=== PATIENT | female | born 1960 | race Caucasian/White ===

== ENCOUNTER 2016-09-09 06:34 | Day surgery (SDC) | payer BC ==
--- NOTE | 2016-09-08 09:08 | HP ---
History & Physical Update - History History: No Change - Physical Physical: No Change - Assessment Assessment: No Change - Plan Plan: No Change
[2016-09-08 16:04] VITALS: BMI 32.1
[2016-09-09] MEDS ORDERED: LIDOCAINE HCL 1%, 10 MG/ML (20ML VIAL) ONE (07:26)
[2016-09-09] MEDS ORDERED: PROPOFOL 20 ML ONE ×3 (07:39)
[2016-09-09] MEDS ORDERED: ePHEDrine SULFATE 50 MG/1 ML AMPULE ONE (07:39)
[2016-09-09] MEDS ORDERED: SUCCINYLCHOLINE CHLORIDE 200 MG/10 ML VIAL ONE (07:39)
[2016-09-09] MEDS ORDERED: MIDAZOLAM HCL 2 MG/2 ML SINGLE DOSE VIAL ONE ×2 (07:40)
[2016-09-09] MEDS ORDERED: DESFLURANE GAS 240 ML BOTTLE IH ONE (07:46)
[2016-09-09] MEDS ORDERED: DEXAMETHASONE SOD PHOSPHATE 4 MG/1 ML VIAL ONE (07:57)
[2016-09-09] MEDS ORDERED: BUPIVACAINE HCL/PF 0.5% (5MG/ML) 10 ML VIAL ONE (07:57)
[2016-09-09] MEDS ORDERED: LIDOCAINE HCL 1%, 10 MG/ML (20ML VIAL) IJ ONE (08:19)
[2016-09-09] MEDS ORDERED: BUPIVACAINE HCL/PF 0.5% (5MG/ML) 10 ML VIAL IJ ONE (08:48)
[2016-09-09] MEDS ORDERED: DEXAMETHASONE SOD PHOSPHATE 4 MG/1 ML VIAL NR ONE (08:49)
[2016-09-09] MEDS ORDERED: PROMETHAZINE HCL 25 MG/1 ML VIAL IVPUSH PRN (09:04)
[2016-09-09] MEDS ORDERED: oxyCODONE HCL 5 MG TABLET PO PRN (09:04)
[2016-09-09] MEDS ORDERED: ONDANSETRON 4 MG/2 ML VIAL IVPUSH PRN (09:04)
--- NOTE | 2016-09-09 10:01 | OP ---
DATE OF OPERATION: 09/09/2016 PROCEDURE: Arthroplasty, second, right. SURGEON: Wayne Kim DPM PREOPERATIVE DIAGNOSIS: Hammertoe, right foot, second. POSTOPERATIVE DIAGNOSIS: Hammertoe, right foot, second. ANESTHESIA: Local anesthesia with intravenous sedation. DESCRIPTION OF PROCEDURE: Patient was taken to the operating room, placed on the operating room table in a supine position for the administration of local anesthesia which was achieved with infiltration of 6 mL of 1% lidocaine plain injected about the surgical site of the right foot. An ankle pneumatic cuff was then placed on the right side, as well as sufficient padding. Right foot was then prepped and draped in usual sterile manner. The right leg was then elevated for 3 minutes. After which time, tourniquet inflated. The following procedure performed: Attention was directed to the second digit, right foot, where a 3-cm dorsal linear incision was made over the PIP joint. It was carried deep in the same plane using both sharp and blunt dissection. Careful attention paid to cauterize all bleeders as necessary. Attention directed to the long extensor tendon. A transverse tenotomy was performed. Head of the proximal phalanx, 2nd digit, right foot, was excised and removed using a double-action bone cutter. Bone removed in toto. Any denuded bone was rasped smooth. Wound copiously irrigated with amounts of saline solution. Long extensor tendon was then reapproximated using 4-0 Vicryl in a simple interrupted suture technique. Skin and subcutaneous tissue were then reapproximated using 4-0 nylon in a simple interrupted technique, surrounded by horizontal mattress sutures. At this time, site of the right foot was then surgically anesthetized postoperatively using 4 mL of 0.5% Marcaine plain and 1 mL of dexamethasone. Again, these injected into the surgical site of the right foot. Incision site was covered with Betadine-soaked Adaptic, sterile gauze, sterile fluff, and Zi. Tourniquet deflated. Normal noted to perfuse all digits of the right foot. There were no complications. Patient tolerated all aspects of surgery well, left the operating room with vital signs satisfactory, condition of the digits and circulation normal. WAYNE KIM DPM [id number]
[2016-09-09 13:41] VITALS: BP 142/78; PULSE 69; TEMP 97.6
--- NOTE | 2016-09-10 16:30 | PATH ---
Surgical Pathology Report Patient Name: SANJAY DE LA FUENTE [place]. Rec. #: [id number] /Age/Gender: 1960 (Age: 55) / F Account: [id number] Location: [facility] SURGICAL Taken: 09/09/2016 Received: 09/09/2016 Reported: 09/10/2016 Physicians: Wayne Kim DPM Specimen(s) Received HEAD OF PROXIMAL PHALANX 2ND DIGIT RIGHT FOOT Clinical History Hammertoe Final Diagnosis BONE, SECOND TOE RIGHT FOOT, ARTHROPLASTY: BENIGN BONE WITH ATTACHED ARTICULAR CARTILAGE AND SYNOVIUM. Electronically Signed Kee Perez M.D. Gross Description Received in formalin labeled "head of proximal phalanx second toe right foot," is a 1.2 x 0.7 x 0.6 cm scanlon, irregular portion of bone. The specimen is trisected and entirely submitted in one cassette, following decalcification. /09/09/201609/09/2016
== END 2016-09-09 11:30 | disposition home or self-care (01) ==
LOC: JASU-SURG 06:34
PROVIDERS: ATTEND Podiatrist
PROC: 0SRP0JZ Replacement of Right Toe Phalangeal Joint with Synthetic Substitute, Open Approach (ICD-10-PCS; principal; 2016-09-09 08:00)
DX: M20.41 Other hammer toe(s) (acquired), right foot (principal)
CPT/HCPCS: 88305-TC; 94760

== ENCOUNTER 2017-11-29 09:10 | Inpatient (IN) | payer BC ==
--- NOTE | 2017-11-29 09:12 | PDOC ---
History of Present Illness - General Chief Complaint: Respiratory Stated Complaint: COUGH Time Seen by Provider: 11/29/17 09:11 - History of Present Illness Initial Comments: 11/29/17 09:30 The patient is a 57 year old female with a history of HTN, HLD, DM who presents for evaluation of cough and shortness of breath. The patient reports a 1 week history of progressively worsening shortness of breath with an associated non- productive cough. She was evaluated by her primary care provider 4-5 days ago and prescribed antibiotics, however she reports continued symptoms worse with exertion prompting her presentation to the ED for further evaluation. She reports subjective fevers at home, but otherwise denies chest pain, nausea, vomiting, abdominal pain, or changes with urination or bowel movements. The patient does report that she is a daily smoker. Past History - Past Medical History Allergies/Adverse Reactions: Allergies Allergy/AdvReac Type Severity Reaction Status Date / Time benzalkonium chloride Allergy Rash Verified 11/29/17 09:12 nickel Allergy Rash Verified 11/29/17 09:12 Sulfa (Sulfonamide Allergy Rash Verified 11/29/17 09:12 Antibiotics) Home Medications: Ambulatory Orders Levothyroxine [Synthroid -] 112 mcg PO DAILY 08/16/12 Sertraline HCl [Zoloft] 100 mg PO HS 08/16/12 metFORMIN HCL [Glucophage -] 1,000 mg PO HS 08/16/12 Atorvastatin Ca [Lipitor] 10 mg PO HS 09/08/16 Cholecalciferol (Vitamin D3) [Vitamin D3 -] 1,000 unit PO DAILY 09/08/16 Albuterol Sulfate [Proair Hfa] 8.5 gm IH ASDIR 11/29/17 Cefuroxime Axetil [Cefuroxime] 500 mg PO BID 11/29/17 Guaifenesin [Mucinex] 600 mg PO BID 11/29/17 L.acidoph,Paracasei, B.lactis [Probiotic] 1 each PO DAILY 11/29/17 Losartan Potassium 50 mg PO DAILY 11/29/17 Anemia: No Asthma: No Cancer: No Cardiac Disorders: No CVA: No COPD: No CHF: No Dementia: No Diabetes: No (HYPERINSULINEMIA) GI Disorders: Yes (H/O REFLUX) Disorders: No HTN: No Hypercholesterolemia: Yes Liver Disease: No Seizures: No Thyroid Disease: Yes (HYPOTHYROIDISM) - Surgical History Abdominal Surgery: No Appendectomy: No Cardiac Surgery: No Cholecystectomy: No Lung Surgery: No Neurologic Surgery: No Orthopedic Surgery: Yes (CARPAL TUNNEL RELEASE, RIGHT) - Suicide/Smoking/Psychosocial Hx Smoking History: Current every day smoker Have you smoked in the past 12 months: Yes Number of Cigarettes Smoked Daily: 20 'Breaking Loose' booklet given: 09/08/16 Hx Alcohol Use: Yes (SOCIALLY) Drug/Substance Use Hx: No Substance Use Type: Alcohol Hx Substance Use Treatment: No Review of Systems - Review of Systems Comments:: 11/29/17 09:35 Constitutional: Subjective Fevers. No chills, fatigue, malaise HEENT: No Rhinorrhea, nasal congestion, visual changes Cardiovascular: No chest pain, syncope, palpitations, lightheadedness Respiratory: Cough, SOB. No Hemoptysis, Gastrointestinal: No Abdominal pain, Nausea, Vomiting, Constipation, Diarrhea, Melena Genitourinary: No Dysuria, Frequency, Urgency, Hesitancy, Hematuria, Flank pain Musculoskeletal: No Myalgia, arthralgia Skin: No rashes, itching, bruising, pallor Neurologic: No Headache, Dizziness, Numbness, Weakness, or Tingling Psychiatric: No Hallucinations. No SI or HI *Physical Exam - Physical Exam Comments: 11/29/17 09:35 General Appearance: Nourished. No Apparent Distress HEENT: No Pharyngeal Erythema, Tonsillar Exudate, Tonsillar Erythema Neck: No Cervical Lymphadenopathy Respiratory/Chest: Diffuse expiratory and inspiratory wheezing noted on exam. No Crackles, Rales, Rhonchi, Cardiovascular: Regular Rhythm, Regular Rate. No Murmur, Gallops, Rubs Gastrointestinal/Abdominal: Normal Bowel Sounds, Soft. No Guarding, Rebound, Tenderness Musculoskeletal: No CVA Tenderness Extremity: Normal Capillary Refill Integumentary: Normal Color, Dry, Warm Neurologic: Fully Oriented, Alert, Normal Mood/Affect, Normal Response, ED Treatment Course - LABORATORY CBC & Chemistry Diagram: 11/29/17 09:50 11/29/17 09:50 Medical Decision Making - Medical Decision Making 11/29/17 09:36 The patient is a 57 year old female with a history of HTN, HLD who presents for evaluation of cough and shortness of breath. Differential includes but is not limited to: Pneumonia, COPD, ACS, Infectious, Metabolic Derangement. Given the patient's history and physical exam, it is likely the patient's symptoms are related to COPD although she denies a formal diagnosis of COPD. We will obtain a cbc, cmp, troponin, bnp, vbg, ekg, chest plain film to evaluate further. We will treat with duonebs, and prednisone and continue to monitor and reassess while here in the ED. 11/29/17 11:32 CBC, cmp, troponin are unremarkable. Chest plain film demonstrates findings consistent with COPD as read by our radiologist. The patient reports minimal improvement in her symptoms despite medication. Given the patient's clinical appearance, we believe she requires observation admission at this time. We discussed the case with the admitting team who accepted the patient for admission. *DC/Admit/Observation/Transfer Diagnosis at time of Disposition: COPD (chronic obstructive pulmonary disease) Qualifiers: COPD type: unspecified COPD Qualified Code(s): J44.9 - Chronic obstructive pulmonary disease, unspecified - Discharge Dispostion Condition at time of disposition: Stable - Referrals - Patient Instructions - Post Discharge Activity
[2017-11-29] MEDS ORDERED: ALBUTEROL SO4 2.5/IPRATROPIUM 0.5 INH SOL 3 ML VIAL.NEB. NEB ONE ×4 (09:19→10:52)
[2017-11-29] MEDS ORDERED: predniSONE 20 MG TABLET (UD) PO ONE (09:19)
[2017-11-29 09:20] VITALS: BMI 30.7
[2017-11-29] MEDS ORDERED: predniSONE 20 MG TABLET (UD) ONE (09:22)
[2017-11-29 10:01] LABS: BASO % 0.8 % (0-2.0); EOS % 0.1 % (0-4.5); HEMOGLOBIN 13.7 GM/dl (10.7-15.3); MCH 30.1 pg (25.7-33.7); MCHC 33.4 g/dl (32.0-36.0); MEAN CELL VOLUME 90.2 fl (80-96); MEAN PLT VOLUME 8.8 fl (7.5-11.1); MONO % 7.9 % (3.8-10.2); NEUT % 56.2 % (42.8-82.8); PLATELET COUNT 224 K/MM3 (134-434); RBC 4.55 M/mm3 (3.60-5.2); RDW 12.7 % (11.6-15.6); WHITE BLOOD COUNT 8.5 K/mm3 (4.0-10.8)
[2017-11-29 10:21] LABS: ALBUMIN 4.3 g/dl (3.5-5.0); ALK PHOS 69 U/L (32-92); ANION GAP 13 MMOL/L (8-16); BILIRUBIN,TOTAL 0.4 mg/dl (0.2-1.0); BLOOD UREA NITROGEN 13 mg/dl (7-18); CALCIUM 9.2 mg/dl (8.4-10.2); CHLORIDE 101 mmol/L (98-107); CO2 24 mmol/L (22-28); CREATININE 0.6 mg/dl (0.6-1.3); GLUCOSE,RANDOM 101 mg/dl (74-106); POTASSIUM 3.7 mmol/L (3.5-5.1); SGOT/AST 20 U/L (10-42); SGPT/ALT 21 U/L (10-40); SODIUM 138 mmol/L (136-145)
[2017-11-29 10:57] LABS: VENOUS PC02 37.2 mmHg (38-52); VENOUS PH 7.44 (7.32-7.42)
[2017-11-29 10:58] LABS: VENOUS PO2 30.4 mmHg (28-48)
--- NOTE | 2017-11-29 10:58 | PDOC ---
Attending Attestation - Resident Resident Name: Flakito Farrell - ED Attending Attestation I have performed the following: I have examined & evaluated the patient, The case was reviewed & discussed with the resident, I agree w/resident's findings & plan - HPI HPI: 11/29/17 10:57 57 YOF with h/o HTN, HLD, DM2, presenting with 1 week of progressive cough, congestion, SOB at rest and with activity.. no sick contacts. PMD gave albuterol PRN, mucinex and cephalosporin abx, without relief. +smoker daily. compliant with meds. 11/29/17 11:11 - Physicial Exam PE: 11/29/17 11:02 NAD, wMMM, nl conjunctiva, anicteric; neck supple. no JVD. +bilateral wheezing, mild respiratory distress. RRR, abdomen soft nontender. RAO x4, no focal neuro deficits. No peripheral edema. normal color for ethnicity, WWP. - Medical Decision Making 11/29/17 11:10 57 YOF with h/o HTN, HLD, DM2, presenting with 1 week of progressive cough, congestion, SOB at rest and with activity.. no sick contacts. PMD gave albuterol PRN, mucinex and cephalosporin abx, without relief. +smoker daily. compliant with meds. vitals wnl, HR mildly elevated from the respiratory sx and cough. SPO2 normal, RR in 20s with mild respiratory distress responding to bronchodilators. DDx. bronchitis, pleurisy, COPD, pneumonia. ACS, CHF, effusion. dehydration. doubt PE or ACS based on history and presentation. more likely viral bronchitis , as abx not working, and underlying undiagnosed COPD. labs and lytes wnl. VBG normal. no acidosis or alkalosis or CO2 derangements trop and bnp negative, so doubt cardiac etiology. EKG is NSR nonspecific T wave flattening in AVL and III, no ST segment derangements. CXR with hilar adenopathy and COPD changes, no infiltrates given duonebs x3, solumedrol and supportive care. continues to wheeze, slight improvement but still symptomatic. admit observation for supportive care, nebs, respiratory monitoring and workup of COPD as there is suspicion and smoking history but not active treatment or pulm function testing. no fevers here, defer further abx use or therapy. [facility] to [facility] for suspected COPD exac vs acute bronchitis. 11/29/17 11:33
[2017-11-29 11:09] LABS: N-TERMINAL BNP 24.95 pg/ml (5-125)
[2017-11-29] MEDS ORDERED: MAGNESIUM SULF 50% (8.12 MEQ/2 ML-1 GM VIAL) IVPB ONE (11:51)
[2017-11-29] MEDS ORDERED: ZOLPIDEM TARTRATE 5 MG TABLET PO PRN (11:52)
--- NOTE | 2017-11-29 11:54 | HP ---
CHIEF COMPLAINT: cough and shortness of breath PCP: Dr Freire HISTORY OF PRESENT ILLNESS: Patient is a obese 57-year-old female with a past medical history of hypertension, hyperlipidemia, and diabetes. Patient reports with cough shortness of breath for the past week. She was evaluated by her primary care physician Dr. Freire last week and was started on cefepime, albuterol, and mucinex. Patient reports that she is a pack a day smoker for the past 35 years.She reports taking the medications as prescribed and reports worsening of dyspnea upon exertion with non-productive cough. Patient denies any chest pain. 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 [employer] Smoking:pack-a-day smoker for the past 35 years Alcohol:None as per patient Drugs: None as per patient Family History:Father : Pancreatic CVA mother : cOPD Allergies benzalkonium chloride Allergy (Verified 11/29/17 09:12) Rash nickel Allergy (Verified 11/29/17 09:12) Rash Sulfa (Sulfonamide Antibiotics) Allergy (Verified 11/29/17 09:12) Rash HOME MEDICATIONS: Home Medications Medication Instructions Recorded Levothyroxine [Synthroid -] 112 mcg PO DAILY 08/16/12 Sertraline HCl [Zoloft] 100 mg PO HS 08/16/12 metFORMIN HCL [Glucophage -] 1,000 mg PO HS 08/16/12 Atorvastatin Ca [Lipitor] 10 mg PO HS 09/08/16 Cholecalciferol (Vitamin D3) 1,000 unit PO DAILY 09/08/16 [Vitamin D3 -] Albuterol Sulfate [Proair Hfa] 8.5 gm IH ASDIR 11/29/17 Cefuroxime Axetil [Cefuroxime] 500 mg PO BID 11/29/17 Guaifenesin [Mucinex] 600 mg PO BID 11/29/17 L.acidoph,Paracasei, B.lactis 1 each PO DAILY 11/29/17 [Probiotic] Losartan Potassium 50 mg PO DAILY 11/29/17 REVIEW OF SYSTEMS CONSTITUTIONAL: Absent: fever, chills, diaphoresis, generalized weakness, malaise, loss of appetite, weight change HEENT: Absent: rhinorrhea, nasal congestion, throat pain, throat swelling, difficulty swallowing, mouth swelling, ear pain, eye pain, visual changes CARDIOVASCULAR: Absent: chest pain, syncope, palpitations, irregular heart rate, lightheadedness , peripheral edema RESPIRATORY: present: cough, shortness of breath, dyspnea with exertion,wheezing Absent: orthopnea, stridor, hemoptysis GASTROINTESTINAL: Absent: abdominal pain, abdominal distension, nausea, vomiting, diarrhea, constipation, melena, hematochezia GENITOURINARY: Absent: dysuria, frequency, urgency, hesitancy, hematuria, flank pain, genital pain MUSCULOSKELETAL: Absent: myalgia, arthralgia, joint swelling, back pain, neck pain SKIN: Absent: rash, itching, pallor HEMATOLOGIC/IMMUNOLOGIC: Absent: easy bleeding, easy bruising, lymphadenopathy, frequent infections ENDOCRINE: Absent: unexplained weight gain, unexplained weight loss, heat intolerance, cold intolerance NEUROLOGIC: Absent: headache, focal weakness or paresthesias, dizziness, unsteady gait, seizure, mental status changes, bladder or bowel incontinence PSYCHIATRIC: Absent: anxiety, depression, suicidal or homicidal ideation, hallucinations. PHYSICAL EXAMINATION Vital Signs - 24 hr 11/29/17 09:10 Temperature 99 F Pulse Rate 99 H Respiratory 22 Rate Blood Pressure 146/89 O2 Sat by Pulse 97 Oximetry (%) GENERAL: Awake, alert, and fully oriented, in no acute distress. HEAD: Normal with no signs of trauma. EYES: Pupils equal, round and reactive to light, extraocular movements intact, sclera anicteric, conjunctiva clear. No lid lag. EARS, NOSE, THROAT: Ears normal, nares patent, oropharynx clear without exudates. Moist mucous membranes. NECK: Normal range of motion, supple without lymphadenopathy, JVD, or masses. LUNGS: Breath sounds equal, Course rhonchi bilaterally to apex moderately diminished, bilateral lower lobe inspiratory wheeze. RR 24, no crackles. No accessory muscle use. HEART: Regular rate and rhythm, normal S1 and S2 without murmur, rub or gallop. ABDOMEN: Soft, nontender, not distended, normoactive bowel sounds, no guarding, no rebound, no masses. No hepatomegaly or splenomegaly. MUSCULOSKELETAL: Normal range of motion at all joints. No bony deformities or tenderness. No CVA tenderness. UPPER EXTREMITIES: 2+ pulses, warm, well-perfused. No cyanosis. No clubbing. No peripheral edema. LOWER EXTREMITIES: 2+ pulses, warm, well-perfused. No calf tenderness. No peripheral edema. NEUROLOGICAL: Cranial nerves II-XII intact. Normal speech. Normal gait. PSYCHIATRIC: Cooperative. Good eye contact. Appropriate mood and affect. SKIN: Warm, dry, normal turgor, no rashes or lesions noted, normal capillary refill. Laboratory Results - last 24 hr 11/29/17 11/29/17 11/29/17 09:50 09:50 09:50 WBC 8.5 RBC 4.55 Hgb 13.7 Hct 41.0 MCV 90.2 MCH 30.1 MCHC 33.4 RDW 12.7 Plt Count 224 MPV 8.8 Absolute Neuts (auto) 4.7 Neutrophils % 56.2 Lymphocytes % 35.0 Monocytes % 7.9 Eosinophils % 0.1 Basophils % 0.8 VBG pH 7.44 H POC VBG pCO2 37.2 L POC VBG pO2 30.4 Mixed VBG HCO3 24.9 Sodium 138 Potassium 3.7 Chloride 101 Carbon Dioxide 24 Anion Gap 13 BUN 13 Creatinine 0.6 Creat Clearance w eGFR > 60 Random Glucose 101 Calcium 9.2 Total Bilirubin 0.4 AST 20 ALT 21 Alkaline Phosphatase 69 Troponin I B-Natriuretic Peptide 24.95 Total Protein Albumin 4.3 11/29/17 09:50 WBC RBC Hgb Hct MCV MCH MCHC RDW Plt Count MPV Absolute Neuts (auto) Neutrophils % Lymphocytes % Monocytes % Eosinophils % Basophils % VBG pH POC VBG pCO2 POC VBG pO2 Mixed VBG HCO3 Sodium Potassium Chloride Carbon Dioxide Anion Gap BUN Creatinine Creat Clearance w eGFR Random Glucose Calcium Total Bilirubin AST ALT Alkaline Phosphatase Troponin I < 0.03 B-Natriuretic Peptide Total Protein Albumin ASSESSMENT/PLAN: 1)Pulmonary copd exacerbation - ct of chest reviewed, prednisone given in ED, will start solumedrol 40mg q6h with taper as appropriate - start standing duonebs, zithromax and symbicort - incentive spirometer and peak flow - smoking cessation discussed with patient at length, will start nicoderm patch - appreciate pulmonology input 2) cardiovascular hypertension - Continue losartan blood pressure:Repeat blood pressure every 4 hours 3) Endo Hypothyroidism - Continue levothyroxine, TSH in a.m. DM - continue metformin f/e/n - low sodium diet - replete electrolytes prn ppx - oob - pepcid - lovenox dispo:pt requires inpatient admission Visit type - Emergency Visit Emergency Visit: Yes ED Registration Date: 11/29/17 Care time: The patient presented to the Emergency Department on the above date and was hospitalized for further evaluation of their emergent condition. - New Patient This patient is new to me today: Yes Date on this admission: 11/29/17 - Critical Care Critical Care patient: No Hospitalist Screening - Colonoscopy Questionnaire Colonoscopy Questionnaire: Colonoscopy Questionnaire - Patient: 50 - 75 years old and never had a screening colonoscopy: No History of colon or rectal polyps, or CA: No History of IBD, Crohn's disease or UC: No History of abdominal radiation therapy as a child: No - Relative: 1 with colon or rectal CA, or polyps at age 60 or younger: No Colon or rectal CA diagnosed at age 45 or younger: No Multiple relatives with colon or rectal CA: No - Outcome: Screening Result: Negative Screen
[2017-11-29] MEDS ORDERED: MAGNESIUM 1GM/D5W - 1 GM/100 ML IVPB IVPB ONE (11:56)
[2017-11-29] MEDS ORDERED: methylPREDNISolone NA SUCC 40 MG/1 ML VIAL ONE (11:59)
[2017-11-29] MEDS: methylPREDNISolone NA SUCC 40 MG/1 ML VIAL IVPUSH SCH ×3 (12:00→22:17)
[2017-11-29] MEDS ORDERED: NICOTINE 14 MG/24 HOURS TOPICAL PATCH TD SCH ×3 (12:00→17:30)
[2017-11-29] MEDS ORDERED: ALBUTEROL SO4 0.083% IH SOL 2.5 MG/3 ML VIAL.NEB. NEB PRN (12:27)
[2017-11-29] MEDS ORDERED: guaiFENesin/CODEINE 10 ML UNIT-DOSE CUPS PO PRN (12:42)
[2017-11-29] MEDS ORDERED: AZITHROMYCIN IVPB 250 ML IVPB ONE (13:12)
[2017-11-29] MEDS ORDERED: AZITHROMYCIN 500 MG VIAL IVPB ONE (13:49)
--- NOTE | 2017-11-29 16:06 | CON.PULM ---
Consult Consult Specialty:: PULMONARY Referred by:: REJI Reason for Consultation:: SOB - History of Present Illness Chief Complaint: SOB/COUGH/CHEST CONGESTION History of Present Illness: The patient is a 57 year old female with a history of HTN, HLD, DM who presents for evaluation of cough and shortness of breath. The patient reports a 1 week history of progressively worsening shortness of breath with an associated non- productive cough. She was evaluated by her primary care provider 4-5 days ago and prescribed antibiotics, however she reports continued symptoms worse with exertion prompting her presentation to the ED for further evaluation. She reports subjective fevers at home, but otherwise denies chest pain, nausea, vomiting, abdominal pain, or changes with urination or bowel movements. The patient does report that she is a daily smoker. 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 No: O2 Dependent, Pneumonia Gastrointestinal: No: Ascites Hepatobiliary: No: Cirrhosis Renal/: No: Renal Failure Reproductive: Yes: Postmenopausal ...LMP: 07/09/11 ...: No Heme/Onc: No: Anemia - Alcohol/Substance Use Hx Alcohol Use: Yes (SOCIALLY) - Smoking History Smoking history: Current every day smoker Have you smoked in the past 12 months: Yes Aproximately how many cigarettes per day: 24 - Social History Usual Living Arrangement: Alone ADL: Independent Place of : [facility] History of Recent Travel: No Home Medications - Allergies Allergies/Adverse Reactions: Allergies Allergy/AdvReac Type Severity Reaction Status Date / Time benzalkonium chloride Allergy Rash Verified 11/29/17 09:12 nickel Allergy Rash Verified 11/29/17 09:12 Sulfa (Sulfonamide Allergy Rash Verified 11/29/17 09:12 Antibiotics) - Home Medications Home Medications: Ambulatory Orders Levothyroxine [Synthroid -] 112 mcg PO DAILY 08/16/12 Sertraline HCl [Zoloft] 100 mg PO HS 08/16/12 metFORMIN HCL [Glucophage -] 1,000 mg PO HS 08/16/12 Atorvastatin Ca [Lipitor] 10 mg PO HS 09/08/16 Cholecalciferol (Vitamin D3) [Vitamin D3 -] 1,000 unit PO DAILY 09/08/16 Albuterol Sulfate [Proair Hfa] 8.5 gm IH ASDIR 11/29/17 Cefuroxime Axetil [Cefuroxime] 500 mg PO BID 11/29/17 Guaifenesin [Mucinex] 600 mg PO BID 11/29/17 L.acidoph,Paracasei, B.lactis [Probiotic] 1 each PO DAILY 11/29/17 Losartan Potassium 50 mg PO DAILY 11/29/17 Family Disease History - Family Disease History Family History: Unremarkable Review of Systems - Review of Systems Neck: reports: No Symptoms Cardiovascular: denies: Chest Pain Respiratory: reports: Cough, Exercise Intolerance, SOB on Exertion, Wheezing. denies: Hemoptysis Gastrointestinal: reports: No Symptoms Genitourinary: reports: No Symptoms Breasts: reports: No Symptoms Reported Musculoskeletal: reports: No Symptoms Physical Exam Vital Sings: Vital Signs Temperature 99.5 F 11/29/17 14:12 Pulse Rate 91 H 11/29/17 14:12 Respiratory Rate 20 11/29/17 14:12 Blood Pressure 168/66 11/29/17 14:12 O2 Sat by Pulse Oximetry (%) 94 L 11/29/17 14:12 Constitutional: Yes: Anxious Eyes: Yes: EOM Intact HENT: Yes: Normocephalic Neck: Yes: Trachea Midline Cardiovascular: Yes: Regular Rate and Rhythm, S1, S2 Respiratory: Yes: Diminished, Rhonchi, Wheezes Gastrointestinal: Yes: Normal Bowel Sounds Extremities: Yes: WNL Edema: No Neurological: Yes: Alert Psychiatric: Yes: Oriented Labs: CBC, BMP 11/29/17 09:50 11/29/17 09:50 REST REVIEWED Imaging - Results Chest X-ray: Report Reviewed, Image Reviewed Cat Scan: Report Reviewed, Image Reviewed Problem List - Problems (1) Asthmatic bronchitis Code(s): J45.909 - UNSPECIFIED ASTHMA, UNCOMPLICATED (2) COPD (chronic obstructive pulmonary disease) Code(s): J44.9 - CHRONIC OBSTRUCTIVE PULMONARY DISEASE, UNSPECIFIED Qualifiers: COPD type: unspecified COPD Qualified Code(s): J44.9 - Chronic obstructive pulmonary disease, unspecified (3) Nicotine dependence Code(s): F17.200 - NICOTINE DEPENDENCE, UNSPECIFIED, UNCOMPLICATED (4) Anxiety and depression Code(s): F41.9 - ANXIETY DISORDER, UNSPECIFIED; F32.9 - MAJOR DEPRESSIVE DISORDER, SINGLE EPISODE, UNSPECIFIED Assessment/Plan ACUTE EXACERBATION COPD IN ACTIVE SMOKER WITH BRONCHITIS FAILED OUTPATIENT THERAPY O2/BRONCHODILATORS/STEROIDS/ANTIBIOTICS WILL NEED OUTPATIENT PFT'F/SMOKING CESSATION Karla SEQUEIRA MD
[2017-11-29] MEDS: ALBUTEROL SO4 2.5/IPRATROPIUM 0.5 INH SOL 3 ML VIAL.NEB. NEB SCH ×2 (16:17→20:21)
[2017-11-29] MEDS ORDERED: ACETAMINOPHEN 325 MG TABLET (FP) PO ONE (20:26)
[2017-11-29] MEDS: SERTRALINE HCL 50 MG TABLET (FP) PO SCH (21:11)
[2017-11-29] MEDS: guaiFENesin 600 MG TABLET.ER (FP) PO SCH (21:11)
[2017-11-29] MEDS: FAMOTIDINE 20 MG TABLET PO SCH (21:11)
[2017-11-29] MEDS: metFORMIN HCL 500 MG TABLET (FP) PO SCH (21:11)
[2017-11-29] MEDS: ATORVASTATIN CA 10 MG TABLET (FP) PO SCH (21:11)
[2017-11-30] MEDS: methylPREDNISolone NA SUCC 40 MG/1 ML VIAL IVPUSH SCH ×4 (03:00→20:43)
[2017-11-30] MEDS: LEVOTHYROXINE NA 112 MCG TABLET (FP) PO SCH (06:07)
[2017-11-30 08:29] LABS: BASO % 0.3 % (0-2.0); HEMATOCRIT 42.2 % (32.4-45.2); MCH 30.2 pg (25.7-33.7); MCHC 33.2 g/dl (32.0-36.0); MEAN CELL VOLUME 90.8 fl (80-96); MEAN PLT VOLUME 9.1 fl (7.5-11.1); MONO % 3.2 % (3.8-10.2); NEUT % 85.5 % (42.8-82.8); PLATELET COUNT 250 K/MM3 (134-434); RBC 4.65 M/mm3 (3.60-5.2); RDW 12.6 % (11.6-15.6); WHITE BLOOD COUNT 12.9 K/mm3 (4.0-10.8)
[2017-11-30 08:53] LABS: ALBUMIN 4.3 g/dl (3.5-5.0); ALK PHOS 74 U/L (32-92); ANION GAP 13 MMOL/L (8-16); BILIRUBIN,TOTAL 0.2 mg/dl (0.2-1.0); BLOOD UREA NITROGEN 12 mg/dl (7-18); CALCIUM 9.3 mg/dl (8.4-10.2); CHLORIDE 102 mmol/L (98-107); CO2 22 mmol/L (22-28); CREATININE 0.6 mg/dl (0.6-1.3); GLUCOSE,RANDOM 115 mg/dl (74-106); POTASSIUM 4.3 mmol/L (3.5-5.1); SGOT/AST 20 U/L (10-42); SGPT/ALT 20 U/L (10-40); SODIUM 137 mmol/L (136-145); TOT PROT 7.3 g/dl (6.4-8.3)
--- NOTE | 2017-11-30 09:08 | PN ---
Physical Exam: SUBJECTIVE: Patient seen and examined, reports Feeling less dyspneic does report ongoing cough OBJECTIVE:Patient is a obese 57-year-old female with a past medical history of hypertension, hyperlipidemia, and diabetes, patient was admitted from the emergency department for copd exacerbation . Vital Signs Period Temp Pulse Resp BP Sys/Mckee Pulse Ox Last 24 Hr 97.8 F-99.5 F 66-99 16-22 109-168/61-89 94-98 GENERAL: The patient is awake, alert, and fully oriented, in no acute distress. HEAD: Normal with no signs of trauma. EYES: PERRL, extraocular movements intact, sclera anicteric, conjunctiva clear. No ptosis. ENT: Ears normal, nares patent, oropharynx clear without exudates, moist mucous membranes. NECK: Trachea midline, full range of motion, supple. LUNGS: Breath sounds equal, course rhonchi to apexes, wheezing to billateral bases, no crackles, no accessory muscle use. HEART: Regular rate and rhythm, S1, S2 without murmur, rub or gallop. ABDOMEN: Soft, nontender, nondistended, normoactive bowel sounds, no guarding, no rebound, no hepatosplenomegaly, no masses. EXTREMITIES: 2+ pulses, warm, well-perfused, no edema. NEUROLOGICAL: Cranial nerves II through XII grossly intact. Normal speech, gait not observed. PSYCH: Normal mood, normal affect. SKIN: Warm, dry, normal turgor, no rashes or lesions noted Laboratory Results - last 24 hr 11/29/17 11/29/17 11/29/17 09:50 09:50 09:50 WBC 8.5 RBC 4.55 Hgb 13.7 Hct 41.0 MCV 90.2 MCH 30.1 MCHC 33.4 RDW 12.7 Plt Count 224 MPV 8.8 Absolute Neuts (auto) 4.7 Neutrophils % 56.2 Lymphocytes % 35.0 Monocytes % 7.9 Eosinophils % 0.1 Basophils % 0.8 VBG pH 7.44 H POC VBG pCO2 37.2 L POC VBG pO2 30.4 Mixed VBG HCO3 24.9 Sodium 138 Potassium 3.7 Chloride 101 Carbon Dioxide 24 Anion Gap 13 BUN 13 Creatinine 0.6 Creat Clearance w eGFR > 60 Random Glucose 101 Calcium 9.2 Total Bilirubin 0.4 AST 20 ALT 21 Alkaline Phosphatase 69 Troponin I B-Natriuretic Peptide 24.95 Total Protein Albumin 4.3 11/29/17 11/30/17 11/30/17 09:50 07:30 07:30 WBC 12.9 H RBC 4.65 Hgb 14.0 Hct 42.2 MCV 90.8 MCH 30.2 MCHC 33.2 RDW 12.6 Plt Count 250 MPV 9.1 Absolute Neuts (auto) 11.1 Neutrophils % 85.5 H Lymphocytes % 11.0 Monocytes % 3.2 L Eosinophils % 0.0 Basophils % 0.3 VBG pH POC VBG pCO2 POC VBG pO2 Mixed VBG HCO3 Sodium 137 Potassium 4.3 Chloride 102 Carbon Dioxide 22 Anion Gap 13 BUN 12 Creatinine 0.6 Creat Clearance w eGFR > 60 Random Glucose 115 H Calcium 9.3 Total Bilirubin 0.2 AST 20 ALT 20 Alkaline Phosphatase 74 Troponin I < 0.03 B-Natriuretic Peptide Total Protein 7.3 Albumin 4.3 Active Medications Generic Name Dose Route Start Last Admin Trade Name Freq PRN Reason Stop Dose Admin Albuterol Sulfate 1 amp 11/29/17 12:27 Ventolin 0.083% Nebulizer Soln - NEB Q4H PRN SHORT OF BREATH/WHEEZING Albuterol/Ipratropium 1 amp 11/29/17 16:00 11/29/17 20:21 Duoneb - NEB 1 amp RQID KESHAWN Administration Atorvastatin Calcium 10 mg 11/29/17 22:00 11/29/17 21:11 Lipitor - PO 10 mg HS KESHAWN Administration Cholecalciferol 1,000 unit 11/30/17 10:00 Vitamin D3 - PO DAILY KESHAWN Enoxaparin Sodium 40 mg 11/30/17 10:00 Lovenox - SQ DAILY KESHAWN Famotidine 20 mg 11/29/17 22:00 11/29/17 21:11 Pepcid - PO 20 mg BID KESHAWN Administration Guaifenesin 600 mg 11/29/17 22:00 11/29/17 21:11 Mucinex - PO 600 mg BID KESHAWN Administration Guaifenesin/Codeine Phosphate 10 ml 11/29/17 12:42 Robitussin Ac - PO Q8H PRN COUGH Azithromycin 250 mg/ Dextrose 250 mls @ 250 mls/hr 11/30/17 10:00 IVPB DAILY KESHAWN Lactobacillus Acidophilus 1 tab 11/30/17 10:00 Bacid - PO DAILY KESHAWN Levothyroxine Sodium 112 mcg 11/30/17 07:00 11/30/17 06:07 Synthroid - PO 112 mcg DAILY@0700 KESHAWN Administration Losartan Potassium 50 mg 11/30/17 10:00 Cozaar - PO DAILY KESHAWN Metformin HCl 1,000 mg 11/29/17 22:00 11/29/17 21:11 Glucophage - PO 1,000 mg HS KESHAWN Administration Methylprednisolone Sodium Succinate 40 mg 11/29/17 12:00 11/30/17 03:00 Solu-Medrol - IVPUSH 40 mg Q6H-IV KESHAWN Administration Nicotine 21 mg 11/29/17 17:30 Nicoderm Patch - TD DAILY KESHAWN Sertraline HCl 100 mg 11/29/17 22:00 11/29/17 21:11 Zoloft - PO 100 mg HS KESHAWN Administration Zolpidem Tartrate 5 mg 11/29/17 11:52 Ambien - PO HS PRN INSOMNIA IMAGING CT of chest: mild copd ASSESSMENT/PLAN: 1)Pulmonary copd exacerbation - continue solumedrol 40mg q6h with taper as appropriate - continue duonebs prn, zithromax, symbicort, and spiriva - smoking cessation discussed with patient at length, continue nicoderm patch - pulmonary consulted and followed 2) cardiovascular hypertension - Continue losartan blood pressure:Repeat blood pressure every 4 hours 3) Endo Hypothyroidism - Continue levothyroxine, TSH pending DM - continue metformin f/e/n - low sodium diet - replete electrolytes prn ppx - oob - pepcid - lovenox dispo:pt requires inpatient admission Visit type - Emergency Visit Emergency Visit: Yes ED Registration Date: 11/30/17 Care time: The patient presented to the Emergency Department on the above date and was hospitalized for further evaluation of their emergent condition. - New Patient This patient is new to me today: No - Critical Care Critical Care patient: No - Discharge Referral Referred to [facility] Med [facility].C[facility] No
[2017-11-30] MEDS: LACTOBACILLUS ACIDOPHILUS 1 TABLET PO SCH (09:31)
[2017-11-30] MEDS: ALBUTEROL SO4 2.5/IPRATROPIUM 0.5 INH SOL 3 ML VIAL.NEB. NEB SCH (09:31)
[2017-11-30] MEDS: NICOTINE 21 MG/24 HOURS TOPICAL PATCH TD SCH (09:32)
[2017-11-30] MEDS: CHOLECALCIFEROL (VITAMIN D3) 1,000 UNIT TABLET (FP) PO SCH (09:32)
[2017-11-30] MEDS: LOSARTAN POTASSIUM 50 MG TABLET (FP) PO SCH (09:33)
[2017-11-30] MEDS: AZITHROMYCIN IVPB 250 MG in DEXTROSE 5%-WATER - 250 ML IVPB SCH (09:33)
[2017-11-30] MEDS: guaiFENesin 600 MG TABLET.ER (FP) PO SCH ×2 (09:33→21:02)
[2017-11-30] MEDS: FAMOTIDINE 20 MG TABLET PO SCH ×2 (09:33→21:03)
[2017-11-30] MEDS: ENOXAPARIN NA (PORCINE) 40 MG/0.4 ML DISP.SYRIN SQ SCH (09:35)
--- NOTE | 2017-11-30 09:55 | PN ---
Progress Note, Physician History of Present Illness: PULMONARY FEELING BETTER,LESS CONGESTED,LESS DYSPNEIC,+ COUGH - Current Medication List Current Medications: Active Medications Albuterol Sulfate (Ventolin 0.083% Nebulizer Soln -) 1 amp NEB Q4H PRN PRN Reason: SHORT OF BREATH/WHEEZING Albuterol/Ipratropium (Duoneb -) 1 amp NEB RQID [facility] Last Admin: 11/30/17 09:31 Dose: 1 amp Atorvastatin Calcium (Lipitor -) 10 mg PO HS [facility] Last Admin: 11/29/17 21:11 Dose: 10 mg Cholecalciferol (Vitamin D3 -) 1,000 unit PO DAILY [facility] Last Admin: 11/30/17 09:32 Dose: 1,000 unit Enoxaparin Sodium (Lovenox -) 40 mg SQ DAILY [facility] Last Admin: 11/30/17 09:35 Dose: Not Given Famotidine (Pepcid -) 20 mg PO BID [facility] Last Admin: 11/30/17 09:33 Dose: 20 mg Guaifenesin (Mucinex -) 600 mg PO BID [facility] Last Admin: 11/30/17 09:33 Dose: 600 mg Guaifenesin/Codeine Phosphate (Robitussin Ac -) 10 ml PO Q8H PRN PRN Reason: COUGH Azithromycin 250 mg/ Dextrose 250 mls @ 250 mls/hr IVPB DAILY [facility] Last Admin: 11/30/17 09:33 Dose: 250 mls/hr Lactobacillus Acidophilus (Bacid -) 1 tab PO DAILY [facility] Last Admin: 11/30/17 09:31 Dose: 1 tab Levothyroxine Sodium (Synthroid -) 112 mcg PO DAILY@0700 [facility] Last Admin: 11/30/17 06:07 Dose: 112 mcg Losartan Potassium (Cozaar -) 50 mg PO DAILY [facility] Last Admin: 11/30/17 09:33 Dose: 50 mg Metformin HCl (Glucophage -) 1,000 mg PO HS [facility] Last Admin: 11/29/17 21:11 Dose: 1,000 mg Methylprednisolone Sodium Succinate (Solu-Medrol -) 40 mg IVPUSH Q6H-IV [facility] Last Admin: 11/30/17 09:35 Dose: 40 mg Nicotine (Nicoderm Patch -) 21 mg TD DAILY [facility] Last Admin: 11/30/17 09:32 Dose: 21 mg Sertraline HCl (Zoloft -) 100 mg PO HS [facility] Last Admin: 11/29/17 21:11 Dose: 100 mg Zolpidem Tartrate (Ambien -) 5 mg PO HS PRN PRN Reason: INSOMNIA - Objective Vital Signs: Vital Signs Temperature 98.3 F 11/30/17 09:23 Pulse Rate 84 11/30/17 09:23 Respiratory Rate 18 11/30/17 09:23 Blood Pressure 141/68 11/30/17 09:23 O2 Sat by Pulse Oximetry (%) 96 11/30/17 06:32 Constitutional: Yes: Well Nourished, Calm Eyes: Yes: WNL HENT: Yes: WNL Neck: Yes: WNL Cardiovascular: Yes: Regular Rate and Rhythm, S1, S2 Respiratory: Yes: Rhonchi (SACTTERED KAI RHONCHI) Gastrointestinal: Yes: Normal Bowel Sounds, Soft Extremities: Yes: WNL Edema: No Labs: CBC, BMP 11/30/17 07:30 11/30/17 07:30 Assessment/Plan Problem List - Problems (1) Asthmatic bronchitis Code(s): J45.909 - UNSPECIFIED ASTHMA, UNCOMPLICATED (2) COPD (chronic obstructive pulmonary disease) Code(s): J44.9 - CHRONIC OBSTRUCTIVE PULMONARY DISEASE, UNSPECIFIED Qualifiers: COPD type: unspecified COPD Qualified Code(s): J44.9 - Chronic obstructive pulmonary disease, unspecified (3) Nicotine dependence Code(s): F17.200 - NICOTINE DEPENDENCE, UNSPECIFIED, UNCOMPLICATED (4) Anxiety and depression Code(s): F41.9 - ANXIETY DISORDER, UNSPECIFIED; F32.9 - MAJOR DEPRESSIVE DISORDER, SINGLE EPISODE, UNSPECIFIED Assessment/Plan ACUTE EXACERBATION COPD ACTIVE SMOKER O2 INHALED BRONCHODILATORS STEROIDS SAME DOSE ANTIBIOTICS OUTPATIENT PFT'S SMOKING CESSATION YEARLY LOW DOSE CHEST CT FOR LUNG CANCER SCREENING DR LE
[2017-11-30] MEDS: BUDESONIDE/FORMETEROL FUMARATE 160/4.5 mcg INHALER IH SCH ×2 (10:32→21:03)
[2017-11-30] MEDS: TIOTROPIUM BROMIDE 2.5 MCG (SPIRIVA) RESPIMAT INHALER IH SCH (10:33)
--- NOTE | 2017-11-30 16:44 | EKG ---
Test Reason : Blood Pressure : / mmHG Vent. Rate : 077 BPM Atrial Rate : 077 BPM P-R Int : 192 ms QRS Dur : 076 ms QT Int : 394 ms P-R-T Axes : 026 067 053 degrees QTc Int : 445 ms NORMAL SINUS RHYTHM NORMAL ECG WHEN COMPARED WITH ECG OF 28-APR-2000 10:38, NO SIGNIFICANT CHANGE WAS FOUND Confirmed by Devyn Horta ([id number]) on 11/30/2017 4:44:21 PM Referred By: OKSANA CORMIER Confirmed By:Devyn Horta
[2017-11-30] MEDS: metFORMIN HCL 500 MG TABLET (FP) PO SCH (21:02)
[2017-11-30] MEDS: SERTRALINE HCL 50 MG TABLET (FP) PO SCH (21:03)
[2017-11-30] MEDS: ATORVASTATIN CA 10 MG TABLET (FP) PO SCH (21:03)
[2017-12-01] MEDS: methylPREDNISolone NA SUCC 40 MG/1 ML VIAL IVPUSH SCH ×4 (03:08→21:10)
[2017-12-01] MEDS: LEVOTHYROXINE NA 112 MCG TABLET (FP) PO SCH (06:06)
[2017-12-01] MEDS: LACTOBACILLUS ACIDOPHILUS 1 TABLET PO SCH (10:27)
[2017-12-01] MEDS: NICOTINE 21 MG/24 HOURS TOPICAL PATCH TD SCH (10:28)
[2017-12-01] MEDS: guaiFENesin 600 MG TABLET.ER (FP) PO SCH ×2 (10:29→21:09)
[2017-12-01] MEDS ORDERED: ALBUTEROL SO4 0.083% IH SOL 2.5 MG/3 ML VIAL.NEB. NEB ONE (10:30)
[2017-12-01] MEDS: BUDESONIDE/FORMETEROL FUMARATE 160/4.5 mcg INHALER IH SCH ×2 (10:30→21:10)
[2017-12-01] MEDS: TIOTROPIUM BROMIDE 2.5 MCG (SPIRIVA) RESPIMAT INHALER IH SCH (10:30)
[2017-12-01] MEDS: LOSARTAN POTASSIUM 50 MG TABLET (FP) PO SCH (10:30)
[2017-12-01] MEDS: CHOLECALCIFEROL (VITAMIN D3) 1,000 UNIT TABLET (FP) PO SCH (10:30)
[2017-12-01] MEDS: AZITHROMYCIN IVPB 250 MG in DEXTROSE 5%-WATER - 250 ML IVPB SCH (10:30)
[2017-12-01] MEDS: FAMOTIDINE 20 MG TABLET PO SCH ×2 (10:31→21:10)
[2017-12-01] MEDS: ENOXAPARIN NA (PORCINE) 40 MG/0.4 ML DISP.SYRIN SQ SCH (10:32)
--- NOTE | 2017-12-01 14:07 | PN ---
Physical Exam: SUBJECTIVE: Patient seen and examined, patient reports cough and shortness of breath Has improved. Reports less dyspnea on exertion OBJECTIVE: Patient is an obese 57-year-old female with a past medical history of hypertension, hyperlipidemia, and diabetes, patient was admitted from the emergency department for copd exacerbation Vital Signs Period Temp Pulse Resp BP Sys/Mckee Pulse Ox Last 24 Hr 97.8 F-98.2 F 57-75 17-20 111-122/58-65 95-100 GENERAL: The patient is awake, alert, and fully oriented, in no acute distress. HEAD: Normal with no signs of trauma. EYES: PERRL, extraocular movements intact, sclera anicteric, conjunctiva clear. No ptosis. ENT: Ears normal, nares patent, oropharynx clear without exudates, moist mucous membranes. NECK: Trachea midline, full range of motion, supple. LUNGS: Breath sounds equal, course rhonchi to apexes, diminished to bases, no crackles, no accessory muscle use. HEART: Regular rate and rhythm, S1, S2 without murmur, rub or gallop. ABDOMEN: Soft, nontender, nondistended, normoactive bowel sounds, no guarding, no rebound, no hepatosplenomegaly, no masses. EXTREMITIES: 2+ pulses, warm, well-perfused, no edema. NEUROLOGICAL: Cranial nerves II through XII grossly intact. Normal speech, gait not observed. PSYCH: Normal mood, normal affect. SKIN: Warm, dry, normal turgor, no rashes or lesions noted Laboratory Results - last 24 hr 11/30/17 07:30 TSH 0.45 Active Medications Generic Name Dose Route Start Last Admin Trade Name Freq PRN Reason Stop Dose Admin Albuterol Sulfate 1 amp 11/29/17 12:27 Ventolin 0.083% Nebulizer Soln - NEB Q4H PRN SHORT OF BREATH/WHEEZING Atorvastatin Calcium 10 mg 11/29/17 22:00 11/30/17 21:03 Lipitor - PO 10 mg HS KESHAWN Administration Budesonide/Formoterol Fumarate 2 puff 11/30/17 10:30 12/01/17 10:30 Symbicort 160/4.5mcg - IH 2 puff BID KESHAWN Administration Cholecalciferol 1,000 unit 11/30/17 10:00 12/01/17 10:30 Vitamin D3 - PO 1,000 unit DAILY KESHAWN Administration Enoxaparin Sodium 40 mg 11/30/17 10:00 12/01/17 10:32 Lovenox - SQ 40 mg DAILY KESHAWN Administration Famotidine 20 mg 11/29/17 22:00 12/01/17 10:31 Pepcid - PO 20 mg BID KESHAWN Administration Guaifenesin 600 mg 11/29/17 22:00 12/01/17 10:29 Mucinex - PO 600 mg BID KESHAWN Administration Guaifenesin/Codeine Phosphate 10 ml 11/29/17 12:42 Robitussin Ac - PO Q8H PRN COUGH Azithromycin 250 mg/ Dextrose 250 mls @ 250 mls/hr 11/30/17 10:00 12/01/17 10 :30 IVPB 250 mls/hr DAILY KESHAWN Administration Lactobacillus Acidophilus 1 tab 11/30/17 10:00 12/01/17 10:27 Bacid - PO 1 tab DAILY KESHAWN Administration Levothyroxine Sodium 112 mcg 11/30/17 07:00 12/01/17 06:06 Synthroid - PO 112 mcg DAILY@0700 KESHAWN Administration Losartan Potassium 50 mg 11/30/17 10:00 12/01/17 10:30 Cozaar - PO 50 mg DAILY KESHAWN Administration Metformin HCl 1,000 mg 11/29/17 22:00 11/30/17 21:02 Glucophage - PO 1,000 mg HS KESHAWN Administration Methylprednisolone Sodium Succinate 40 mg 11/29/17 12:00 12/01/17 10:27 Solu-Medrol - IVPUSH 40 mg Q6H-IV KESHAWN Administration Nicotine 21 mg 11/29/17 17:30 12/01/17 10:28 Nicoderm Patch - TD 21 mg DAILY KESHAWN Administration Sertraline HCl 100 mg 11/29/17 22:00 11/30/17 21:03 Zoloft - PO 100 mg HS KESHAWN Administration Tiotropium [place]herty 2 puff 11/30/17 10:30 12/01/17 10:30 Spiriva Respimat IH 2 puff DAILY KESHAWN Administration Zolpidem Tartrate 5 mg 11/29/17 11:52 Ambien - PO HS PRN INSOMNIA IMAGING CT of chest: mild copd ASSESSMENT/PLAN: 1)Pulmonary copd exacerbation -wheezing improved decrease solumedrol 40mg TID - continue duonebs prn, zithromax, symbicort, and spiriva - smoking cessation discussed with patient at length, continue nicoderm patch - pulmonary consulted and followed 2) cardiovascular hypertension - Continue losartan blood pressure:Repeat blood pressure every 4 hours 3) Endo Hypothyroidism - Continue levothyroxine, TSH wnl DM - continue metformin f/e/n - low sodium diet - replete electrolytes prn ppx - oob - pepcid - lovenox dispo:pt requires inpatient admission Visit type - Emergency Visit Emergency Visit: Yes ED Registration Date: 11/30/17 Care time: The patient presented to the Emergency Department on the above date and was hospitalized for further evaluation of their emergent condition. - New Patient This patient is new to me today: No - Critical Care Critical Care patient: No - Discharge Referral Referred to [facility] Med P.C.: No
--- NOTE | 2017-12-01 16:49 | PN ---
Progress Note (short form) - Note Progress Note: PULMONARY SUBJECTIVE IMPROVEMENT VSS/AFEBRILE ANICTERIC DIMINISHED B/L BREATH SOUNDS S1S2 BS+ NO EDEMA LABS/MEDS/NOTES/IMAGES REVIEWED (1) Asthmatic bronchitis Code(s): J45.909 - UNSPECIFIED ASTHMA, UNCOMPLICATED (2) COPD (chronic obstructive pulmonary disease) Code(s): J44.9 - CHRONIC OBSTRUCTIVE PULMONARY DISEASE, UNSPECIFIED Qualifiers: COPD type: unspecified COPD Qualified Code(s): J44.9 - Chronic obstructive pulmonary disease, unspecified (3) Nicotine dependence Code(s): F17.200 - NICOTINE DEPENDENCE, UNSPECIFIED, UNCOMPLICATED (4) Anxiety and depression Code(s): F41.9 - ANXIETY DISORDER, UNSPECIFIED; F32.9 - MAJOR DEPRESSIVE DISORDER, SINGLE EPISODE, UNSPECIFIED ACTIVE SMOKER O2 INHALED BRONCHODILATORS STEROIDS SAME DOSE ANTIBIOTICS OUTPATIENT PFT'S SMOKING CESSATION YEARLY LOW DOSE CHEST CT FOR LUNG CANCER SCREENING Karla SEQUEIRA MD Problem List - Problems (1) Asthmatic bronchitis Code(s): J45.909 - UNSPECIFIED ASTHMA, UNCOMPLICATED (2) COPD (chronic obstructive pulmonary disease) Code(s): J44.9 - CHRONIC OBSTRUCTIVE PULMONARY DISEASE, UNSPECIFIED Qualifiers: COPD type: unspecified COPD Qualified Code(s): J44.9 - Chronic obstructive pulmonary disease, unspecified (3) Nicotine dependence Code(s): F17.200 - NICOTINE DEPENDENCE, UNSPECIFIED, UNCOMPLICATED (4) Anxiety and depression Code(s): F41.9 - ANXIETY DISORDER, UNSPECIFIED; F32.9 - MAJOR DEPRESSIVE DISORDER, SINGLE EPISODE, UNSPECIFIED
[2017-12-01] MEDS: metFORMIN HCL 500 MG TABLET (FP) PO SCH (21:09)
[2017-12-01] MEDS: SERTRALINE HCL 50 MG TABLET (FP) PO SCH (21:09)
[2017-12-01] MEDS: ATORVASTATIN CA 10 MG TABLET (FP) PO SCH (21:09)
[2017-12-02] MEDS: methylPREDNISolone NA SUCC 40 MG/1 ML VIAL IVPUSH SCH ×3 (03:00→17:45)
[2017-12-02] MEDS: LEVOTHYROXINE NA 112 MCG TABLET (FP) PO SCH (06:09)
--- NOTE | 2017-12-02 07:52 | PN ---
Progress Note, Physician History of Present Illness: pulmonary alert,feeling better, dyspnea improving,less congested,less cough - Current Medication List Current Medications: Active Medications Albuterol Sulfate (Ventolin 0.083% Nebulizer Soln -) 1 amp NEB Q4H PRN PRN Reason: SHORT OF BREATH/WHEEZING Atorvastatin Calcium (Lipitor -) 10 mg PO HS [facility] Last Admin: 12/01/17 21:09 Dose: 10 mg Budesonide/Formoterol Fumarate (Symbicort 160/4.5mcg -) 2 puff IH BID [facility] Last Admin: 12/01/17 21:10 Dose: 2 puff Cholecalciferol (Vitamin D3 -) 1,000 unit PO DAILY [facility] Last Admin: 12/01/17 10:30 Dose: 1,000 unit Enoxaparin Sodium (Lovenox -) 40 mg SQ DAILY [facility] Last Admin: 12/01/17 10:32 Dose: 40 mg Famotidine (Pepcid -) 20 mg PO BID [facility] Last Admin: 12/01/17 21:10 Dose: 20 mg Guaifenesin (Mucinex -) 600 mg PO BID [facility] Last Admin: 12/01/17 21:09 Dose: 600 mg Guaifenesin/Codeine Phosphate (Robitussin Ac -) 10 ml PO Q8H PRN PRN Reason: COUGH Azithromycin 250 mg/ Dextrose 250 mls @ 250 mls/hr IVPB DAILY [facility] Last Admin: 12/01/17 10:30 Dose: 250 mls/hr Lactobacillus Acidophilus (Bacid -) 1 tab PO DAILY [facility] Last Admin: 12/01/17 10:27 Dose: 1 tab Levothyroxine Sodium (Synthroid -) 112 mcg PO DAILY@0700 [facility] Last Admin: 12/02/17 06:09 Dose: 112 mcg Losartan Potassium (Cozaar -) 50 mg PO DAILY [facility] Last Admin: 12/01/17 10:30 Dose: 50 mg Metformin HCl (Glucophage -) 1,000 mg PO HS [facility] Last Admin: 12/01/17 21:09 Dose: 1,000 mg Methylprednisolone Sodium Succinate (Solu-Medrol -) 40 mg IVPUSH Q6H-IV [facility] Last Admin: 12/02/17 03:00 Dose: 40 mg Nicotine (Nicoderm Patch -) 21 mg TD DAILY [facility] Last Admin: 12/01/17 10:28 Dose: 21 mg Sertraline HCl (Zoloft -) 100 mg PO HS [facility] Last Admin: 12/01/17 21:09 Dose: 100 mg Tiotropium [place] (Spiriva Respimat) 2 puff IH DAILY [facility] Last Admin: 12/01/17 10:30 Dose: 2 puff Zolpidem Tartrate (Ambien -) 5 mg PO HS PRN PRN Reason: INSOMNIA - Objective Vital Signs: Vital Signs Temperature 98.2 F 12/02/17 06:00 Pulse Rate 69 12/02/17 06:00 Respiratory Rate 19 12/02/17 06:00 Blood Pressure 127/58 12/02/17 06:00 O2 Sat by Pulse Oximetry (%) 96 12/02/17 06:25 Constitutional: Yes: Well Nourished, Calm Eyes: Yes: WNL HENT: Yes: WNL Neck: Yes: WNL Cardiovascular: Yes: Regular Rate and Rhythm, S1, S2 Respiratory: Yes: Wheezes (less wheezes bilaterally) Gastrointestinal: Yes: Normal Bowel Sounds, Soft Extremities: Yes: WNL Edema: No Labs: CBC, BMP Assessment/Plan Problem List - Problems (1) Asthmatic bronchitis Code(s): J45.909 - UNSPECIFIED ASTHMA, UNCOMPLICATED (2) COPD (chronic obstructive pulmonary disease) Code(s): J44.9 - CHRONIC OBSTRUCTIVE PULMONARY DISEASE, UNSPECIFIED Qualifiers: COPD type: unspecified COPD Qualified Code(s): J44.9 - Chronic obstructive pulmonary disease, unspecified (3) Nicotine dependence Code(s): F17.200 - NICOTINE DEPENDENCE, UNSPECIFIED, UNCOMPLICATED (4) Anxiety and depression Code(s): F41.9 - ANXIETY DISORDER, UNSPECIFIED; F32.9 - MAJOR DEPRESSIVE DISORDER, SINGLE EPISODE, UNSPECIFIED Assessment/Plan ACUTE EXACERBATION COPD ACTIVE SMOKER O2 INHALED BRONCHODILATORS STEROIDS TAPER ANTIBIOTICS OUTPATIENT PFT'S SMOKING CESSATION COUNSELED YEARLY LOW DOSE CHEST CT FOR LUNG CANCER SCREENING DR LE
[2017-12-02] MEDS ORDERED: PT OWN MED DRAWER 7, Y5N ONE ×2 (09:12→21:31)
[2017-12-02] MEDS: NICOTINE 21 MG/24 HOURS TOPICAL PATCH TD SCH (09:14)
[2017-12-02] MEDS: guaiFENesin 600 MG TABLET.ER (FP) PO SCH ×2 (09:15→21:33)
[2017-12-02] MEDS: CHOLECALCIFEROL (VITAMIN D3) 1,000 UNIT TABLET (FP) PO SCH (09:15)
[2017-12-02] MEDS: LACTOBACILLUS ACIDOPHILUS 1 TABLET PO SCH (09:15)
[2017-12-02] MEDS: TIOTROPIUM BROMIDE 2.5 MCG (SPIRIVA) RESPIMAT INHALER IH SCH (09:15)
[2017-12-02] MEDS: FAMOTIDINE 20 MG TABLET PO SCH ×2 (09:15→21:33)
[2017-12-02] MEDS: BUDESONIDE/FORMETEROL FUMARATE 160/4.5 mcg INHALER IH SCH ×2 (09:15→21:34)
[2017-12-02] MEDS: LOSARTAN POTASSIUM 50 MG TABLET (FP) PO SCH (09:15)
[2017-12-02] MEDS: ENOXAPARIN NA (PORCINE) 40 MG/0.4 ML DISP.SYRIN SQ SCH (09:15)
[2017-12-02] MEDS: AZITHROMYCIN IVPB 250 MG in DEXTROSE 5%-WATER - 250 ML IVPB SCH (09:16)
--- NOTE | 2017-12-02 09:53 | PN ---
Physical Exam: SUBJECTIVE: Patient seen and examined , Patient is resting comfortably in bed , reports feeling much improved, feeling less dyspneic and sensation denies any chest pain. OBJECTIVE: Patient is an obese 57-year-old female with a past medical history of hypertension, hyperlipidemia, and diabetes, patient was admitted from the emergency department for copd exacerbation Vital Signs Period Temp Pulse Resp BP Sys/Mckee Pulse Ox Last 24 Hr 98.2 F-98.7 F 69-79 16-19 122-139/55-78 95-96 GENERAL: The patient is awake, alert, and fully oriented, in no acute distress. HEAD: Normal with no signs of trauma. EYES: PERRL, extraocular movements intact, sclera anicteric, conjunctiva clear. No ptosis. ENT: Ears normal, nares patent, oropharynx clear without exudates, moist mucous membranes. NECK: Trachea midline, full range of motion, supple. LUNGS: Breath sounds equal, course rhonchi to apexes, diminished to bases bilaterally, no wheezes, no crackles, no accessory muscle use. HEART: Regular rate and rhythm, S1, S2 without murmur, rub or gallop. ABDOMEN: Soft, nontender, nondistended, normoactive bowel sounds, no guarding, no rebound, no hepatosplenomegaly, no masses. EXTREMITIES: 2+ pulses, warm, well-perfused, no edema. NEUROLOGICAL: Cranial nerves II through XII grossly intact. Normal speech, gait not observed. PSYCH: Normal mood, normal affect. SKIN: Warm, dry, normal turgor, no rashes or lesions noted Active Medications Generic Name Dose Route Start Last Admin Trade Name Freq PRN Reason Stop Dose Admin Albuterol Sulfate 1 amp 11/29/17 12:27 Ventolin 0.083% Nebulizer Soln - NEB Q4H PRN SHORT OF BREATH/WHEEZING Atorvastatin Calcium 10 mg 11/29/17 22:00 12/01/17 21:09 Lipitor - PO 10 mg HS KESHAWN Administration Budesonide/Formoterol Fumarate 2 puff 11/30/17 10:30 12/02/17 09:15 Symbicort 160/4.5mcg - IH 2 puff BID KESHAWN Administration Cholecalciferol 1,000 unit 11/30/17 10:00 12/02/17 09:15 Vitamin D3 - PO 1,000 unit DAILY KESHAWN Administration Enoxaparin Sodium 40 mg 11/30/17 10:00 12/02/17 09:15 Lovenox - SQ 40 mg DAILY KESHAWN Administration Famotidine 20 mg 11/29/17 22:00 12/02/17 09:15 Pepcid - PO 20 mg BID KESHAWN Administration Guaifenesin 600 mg 11/29/17 22:00 12/02/17 09:15 Mucinex - PO 600 mg BID KESHAWN Administration Guaifenesin/Codeine Phosphate 10 ml 11/29/17 12:42 Robitussin Ac - PO Q8H PRN COUGH Azithromycin 250 mg/ Dextrose 250 mls @ 250 mls/hr 11/30/17 10:00 12/02/17 09 :16 IVPB 250 mls/hr DAILY KESHAWN Administration Lactobacillus Acidophilus 1 tab 11/30/17 10:00 12/02/17 09:15 Bacid - PO 1 tab DAILY KESHAWN Administration Levothyroxine Sodium 112 mcg 11/30/17 07:00 12/02/17 06:09 Synthroid - PO 112 mcg DAILY@0700 KESHAWN Administration Losartan Potassium 50 mg 11/30/17 10:00 12/02/17 09:15 Cozaar - PO 50 mg DAILY KESHAWN Administration Metformin HCl 1,000 mg 11/29/17 22:00 12/01/17 21:09 Glucophage - PO 1,000 mg HS KESHAWN Administration Methylprednisolone Sodium Succinate 40 mg 12/02/17 10:00 Solu-Medrol - IVPUSH Q8H-IV KESHAWN Nicotine 21 mg 11/29/17 17:30 12/02/17 09:14 Nicoderm Patch - TD 21 mg DAILY KESHAWN Administration Sertraline HCl 100 mg 11/29/17 22:00 12/01/17 21:09 Zoloft - PO 100 mg HS KESHAWN Administration Tiotropium [place] 2 puff 11/30/17 10:30 12/02/17 09:15 Spiriva Respimat IH 2 puff DAILY KESHAWN Administration Zolpidem Tartrate 5 mg 11/29/17 11:52 Ambien - PO HS PRN INSOMNIA IMAGING CT of chest: mild copd ASSESSMENT/PLAN: 1)Pulmonary copd exacerbation - improving, continue solumedrol 40mg TID - continue duonebs prn, zithromax, symbicort, and spiriva - smoking cessation discussed with patient at length, continue nicoderm patch - pulmonary consulted and following 2) cardiovascular hypertension - Continue losartan blood pressure:Repeat blood pressure every 4 hours 3) Endo Hypothyroidism - Continue levothyroxine, TSH wnl DM - continue metformin 4) dysuria - pt reports dysuria, trace leukocytes noted, pending urine culture, start rocephin f/e/n - low sodium diet - replete electrolytes prn ppx - oob - pepcid - lovenox dispo:pt requires inpatient admission Visit type - Emergency Visit Emergency Visit: Yes ED Registration Date: 11/30/17 Care time: The patient presented to the Emergency Department on the above date and was hospitalized for further evaluation of their emergent condition. - New Patient This patient is new to me today: No - Critical Care Critical Care patient: No - Discharge Referral Referred to [facility] Med P.C.: No
[2017-12-02 11:46] LABS: PH,URINE 6.5 (4.5-8); URINE APPEARANCE Clear; URINE BILIRUBIN Negative (NEGATIVE); URINE COLOR Yellow; URINE GLUCOSE (UA) Negative (NEGATIVE); URINE KETONE Negative (NEGATIVE); URINE NITRITE Negative (NEGATIVE); URINE PROTEIN Negative (NEGATIVE); URINE UROBILINOGEN 0.2 (0.2-1.0)
[2017-12-02 11:47] LABS: URINE LEUK ESTERASE TRACE (NEGATIVE)
[2017-12-02 12:27] LABS: EPI CELLS FEW /HPF
[2017-12-02] MEDS: CEFTRIAXONE 1 GM/50 ML BAG IVPB SCH (14:34)
[2017-12-02] MEDS: SERTRALINE HCL 50 MG TABLET (FP) PO SCH (21:33)
[2017-12-02] MEDS: ATORVASTATIN CA 10 MG TABLET (FP) PO SCH (21:33)
[2017-12-02] MEDS: metFORMIN HCL 500 MG TABLET (FP) PO SCH (21:34)
[2017-12-03] MEDS: methylPREDNISolone NA SUCC 40 MG/1 ML VIAL IVPUSH SCH ×2 (01:23→09:56)
[2017-12-03] MEDS: LEVOTHYROXINE NA 112 MCG TABLET (FP) PO SCH (06:05)
[2017-12-03 06:48] VITALS: BP 114/70; PULSE 73; TEMP 98.3
[2017-12-03] MEDS: CEFTRIAXONE 1 GM/50 ML BAG IVPB SCH (09:54)
[2017-12-03] MEDS: AZITHROMYCIN IVPB 250 MG in DEXTROSE 5%-WATER - 250 ML IVPB SCH (09:54)
[2017-12-03] MEDS: CHOLECALCIFEROL (VITAMIN D3) 1,000 UNIT TABLET (FP) PO SCH (09:55)
[2017-12-03] MEDS: guaiFENesin 600 MG TABLET.ER (FP) PO SCH (09:55)
[2017-12-03] MEDS: LACTOBACILLUS ACIDOPHILUS 1 TABLET PO SCH (09:56)
[2017-12-03] MEDS: BUDESONIDE/FORMETEROL FUMARATE 160/4.5 mcg INHALER IH SCH (09:56)
[2017-12-03] MEDS: NICOTINE 21 MG/24 HOURS TOPICAL PATCH TD SCH (09:56)
[2017-12-03] MEDS: TIOTROPIUM BROMIDE 2.5 MCG (SPIRIVA) RESPIMAT INHALER IH SCH (09:57)
[2017-12-03] MEDS: ENOXAPARIN NA (PORCINE) 40 MG/0.4 ML DISP.SYRIN SQ SCH (09:57)
[2017-12-03] MEDS: FAMOTIDINE 20 MG TABLET PO SCH (09:57)
[2017-12-03] MEDS: LOSARTAN POTASSIUM 50 MG TABLET (FP) PO SCH (09:57)
[2017-12-03] MEDS ORDERED: ALBUTEROL SO4 2.5/IPRATROPIUM 0.5 INH SOL 3 ML VIAL.NEB. NEB ONE (10:19)
--- NOTE | 2017-12-03 11:19 | DS ---
Physical Exam: SUBJECTIVE: Patient seen and examinedpatient reports feeling much improved denies any chest pain or shortness of breath, patient denies any dyspnea on exertion denies a tactile fever ready for discharge home. OBJECTIVE: Patient is a obese 57-year-old female with a past medical history of hypertension, hyperlipidemia, and diabetes. Patient reports with cough shortness of breath for the past week. She was evaluated by her primary care physician Dr. Freire last week and was started on cefepime,albuterol, and mucinex. Patient reports that she is a pack a day smoker for the past 35 years.She reports taking the medications as prescribed and reports worsening of dyspnea upon exertion with non-productive cough. Patient denies any chest pain. ER course was notable for: (1)spo2 99% (2)Chest CT mild COPD no acute pathology (3)WBC 8.5 Vital Signs Period Temp Pulse Resp BP Sys/Mckee Pulse Ox Last 24 Hr 98 F-98.5 F 68-79 18-20 113-130/65-70 95-96 PHYSICAL EXAM GENERAL: The patient is awake, alert, and fully oriented, in no acute distress. HEAD: Normal with no signs of trauma. EYES: PERRL, extraocular movements intact, sclera anicteric, conjunctiva clear. No ptosis. ENT: Ears normal, nares patent, oropharynx clear without exudates, moist mucous membranes. NECK: Trachea midline, full range of motion, supple. LUNGS: Breath sounds equal, course rhonchi to apexes, diminished to bases bilaterally, no wheezes, no crackles, no accessory muscle use. HEART: Regular rate and rhythm, S1, S2 without murmur, rub or gallop. ABDOMEN: Soft, nontender, nondistended, normoactive bowel sounds, no guarding, no rebound, no hepatosplenomegaly, no masses. EXTREMITIES: 2+ pulses, warm, well-perfused, no edema. NEUROLOGICAL: Cranial nerves II through XII grossly intact. Normal speech, gait not observed. PSYCH: Normal mood, normal affect. SKIN: Warm, dry, normal turgor, no rashes or lesions noted LABS Laboratory Results - last 24 hr 12/02/17 11:20 Urine Color Yellow Urine Appearance Clear Urine pH 6.5 Ur Specific [place] <= 1.005 Urine Protein Negative Urine Glucose (UA) Negative Urine Ketones Negative Urine Blood 2+ H Urine Nitrite Negative Urine Bilirubin Negative Urine Urobilinogen 0.2 Ur Leukocyte Esterase Trace H Urine RBC 5-10 Urine WBC 2-5 Ur Epithelial Cells Few CBC WBC 12.9 K/mm3 (4.0-10.8) H 11/30/17 07:30 RBC 4.65 M/mm3 (3.60-5.2) 11/30/17 07:30 Hgb 14.0 GM/dl (10.7-15.3) 11/30/17 07:30 Hct 42.2 % (32.4-45.2) 11/30/17 07:30 MCV 90.8 fl (80-96) 11/30/17 07:30 MCH 30.2 pg (25.7-33.7) 11/30/17 07:30 MCHC 33.2 g/dl (32.0-36.0) 11/30/17 07:30 RDW 12.6 % (11.6-15.6) 11/30/17 07:30 Plt Count 250 K/MM3 (134-434) 11/30/17 07:30 MPV 9.1 fl (7.5-11.1) 11/30/17 07:30 Absolute Neuts (auto) 11.1 K/mm3 11/30/17 07:30 Neutrophils % 85.5 % (42.8-82.8) H 11/30/17 07:30 Lymphocytes % 11.0 % (8-40) 11/30/17 07:30 Monocytes % 3.2 % (3.8-10.2) L 11/30/17 07:30 Eosinophils % 0.0 % (0-4.5) 11/30/17 07:30 Basophils % 0.3 % (0-2.0) 11/30/17 07:30 CMP Sodium 137 mmol/L (136-145) 11/30/17 07:30 Potassium 4.3 mmol/L (3.5-5.1) 11/30/17 07:30 Chloride 102 mmol/L (98-107) 11/30/17 07:30 Carbon Dioxide 22 mmol/L (22-28) 11/30/17 07:30 Anion Gap 13 MMOL/L (8-16) 11/30/17 07:30 BUN 12 mg/dl (7-18) 11/30/17 07:30 Creatinine 0.6 mg/dl (0.6-1.3) 11/30/17 07:30 Creat Clearance w eGFR > 60 (>60) 11/30/17 07:30 Random Glucose 115 mg/dl (74-106) H 11/30/17 07:30 Hemoglobin A1c % 5.5 % (4.2-6.3) 11/30/17 07:30 Calcium 9.3 mg/dl (8.4-10.2) 11/30/17 07:30 Total Bilirubin 0.2 mg/dl (0.2-1.0) 11/30/17 07:30 AST 20 U/L (10-42) 11/30/17 07:30 ALT 20 U/L (10-40) 11/30/17 07:30 Alkaline Phosphatase 74 U/L (32-92) 11/30/17 07:30 Troponin I < 0.03 ng/ml (0.00-0.06) 11/29/17 09:50 B-Natriuretic Peptide 24.95 pg/ml (5-125) 11/29/17 09:50 Total Protein 7.3 g/dl (6.4-8.3) 11/30/17 07:30 Albumin 4.3 g/dl (3.5-5.0) 11/30/17 07:30 TSH 0.45 uIU/ml (0.358-3.74) 11/30/17 07:30 Microbiology 12/02/17 11:20 Urine - Urine Clean Catch Urine Culture - Preliminary Group D Strep Or Entero Coccus IMAGING CT of chest: mild copd HOSPITAL COURSE: 1)copd exacerbation - improved after solumedrol then transitioned to prednisone - duonebs prn, zithromax, symbicort, and spiriva - smoking cessation discussed with patient at length, patient was placed on nicoderm patch - pulmonary consulted and followed 2) hypertension - Continued losartan blood pressure remained at goal. 3) Endo Hypothyroidism - Continue levothyroxine, TSH wnl DM - continue metformin 4) dysuria - pt reports dysuria, trace leukocytes noted, urine culture noted as above treated with rocephin for 2 days then transitioned to ceftin PLAN - discharge home with strict follow up Were discussed with patient at length the importance of with the senior care assistant smoking sensation patient verbalizes understanding. - continue symbicort, spiriva, and albuterol - return precaution reviewed Date of Admission:11/30/17 Date of Discharge: 12/03/17 Minutes to complete discharge: 45 Discharge Summary Reason For Visit: COPD EXACERBATION Current Active Problems Anxiety and depression (Acute) Asthmatic bronchitis (Acute) COPD (chronic obstructive pulmonary disease) (Acute) Nicotine dependence (Acute) Condition: Improved - Instructions Diet, Activity, Other Instructions: continue prednisone daily as prescribed, please take prednisone with food. Continue Symbicort and Spiriva daily, albuterol nebulizer every 4 hours as needed for shortness of breath or wheezing. continue all medications as prescribed. please follow up with a senior care assistant within 1 week Please follow up with her primary care physician within 2 weeks if any new or persistent symptoms develop please return to the emergency department Referrals: Smith Hollingsworth MD [Staff Physician] - 1 Week Dexter Daniels MD [Primary Care Provider] - Disposition: HOME - Home Medications Comprehensive Discharge Medication List: Ambulatory Orders Levothyroxine [Synthroid -] 112 mcg PO DAILY 08/16/12 Sertraline HCl [Zoloft] 100 mg PO HS 08/16/12 metFORMIN HCL [Glucophage -] 1,000 mg PO HS 08/16/12 Atorvastatin Ca [Lipitor] 10 mg PO HS 09/08/16 Cholecalciferol (Vitamin D3) [Vitamin D3 -] 1,000 unit PO DAILY 09/08/16 Albuterol Sulfate [Proair Hfa] 8.5 gm IH ASDIR 11/29/17 Cefuroxime Axetil [Cefuroxime] 500 mg PO BID 11/29/17 Guaifenesin [Mucinex] 600 mg PO BID 11/29/17 L.acidoph,Paracasei, B.lactis [Probiotic] 1 each PO DAILY 11/29/17 Losartan Potassium 50 mg PO DAILY 11/29/17 This patient is new to me today: No Emergency Visit: Yes ED Registration Date: 11/30/17 Care time: The patient presented to the Emergency Department on the above date and was hospitalized for further evaluation of their emergent condition. Critical Care patient: No - Discharge Referral Referred to [facility] No
[2017-12-03] MEDS ORDERED: predniSONE 20 MG TABLET (UD) PO ONE (11:30)
--- NOTE | 2017-12-03 11:40 | PN ---
Progress Note (short form) - Note Progress Note: PULMONARY SUBJECTIVE IMPROVEMENT VSS/AFEBRILE ANICTERIC DIMINISHED B/L BREATH SOUNDS S1S2 BS+ NO EDEMA LABS/MEDS/NOTES/IMAGES REVIEWED (1) Asthmatic bronchitis Code(s): J45.909 - UNSPECIFIED ASTHMA, UNCOMPLICATED (2) COPD (chronic obstructive pulmonary disease) Code(s): J44.9 - CHRONIC OBSTRUCTIVE PULMONARY DISEASE, UNSPECIFIED Qualifiers: COPD type: unspecified COPD Qualified Code(s): J44.9 - Chronic obstructive pulmonary disease, unspecified (3) Nicotine dependence Code(s): F17.200 - NICOTINE DEPENDENCE, UNSPECIFIED, UNCOMPLICATED (4) Anxiety and depression Code(s): F41.9 - ANXIETY DISORDER, UNSPECIFIED; F32.9 - MAJOR DEPRESSIVE DISORDER, SINGLE EPISODE, UNSPECIFIED ACTIVE SMOKER INHALED BRONCHODILATORS STEROIDS ANTIBIOTICS OUTPATIENT PFT'S SMOKING CESSATION YEARLY LOW DOSE CHEST CT FOR LUNG CANCER SCREENING WILL SEE PATIENT NEXT WEEK IN OFFICE Karla SEQUEIRA MD Problem List - Problems (1) Asthmatic bronchitis Code(s): J45.909 - UNSPECIFIED ASTHMA, UNCOMPLICATED (2) COPD (chronic obstructive pulmonary disease) Code(s): J44.9 - CHRONIC OBSTRUCTIVE PULMONARY DISEASE, UNSPECIFIED Qualifiers: COPD type: unspecified COPD Qualified Code(s): J44.9 - Chronic obstructive pulmonary disease, unspecified (3) Nicotine dependence Code(s): F17.200 - NICOTINE DEPENDENCE, UNSPECIFIED, UNCOMPLICATED (4) Anxiety and depression Code(s): F41.9 - ANXIETY DISORDER, UNSPECIFIED; F32.9 - MAJOR DEPRESSIVE DISORDER, SINGLE EPISODE, UNSPECIFIED
== END 2017-12-03 14:00 | disposition home or self-care (01) | DRG 192 ==
LOC: FER 09:10 → FM/S 11:13 → OBSVTOIN 11-30 09:46
PROVIDERS: ADMIT Hospitalist; ATTEND Nurse Practitioner Family
PROC: 3E0F76Z Introduction of Nutritional Substance into Respiratory Tract, Via Natural or Artificial Opening (ICD-10-PCS; principal; 2017-11-30)
DX: J44.1 Chronic obstructive pulmonary disease with (acute) exacerbation (principal); I10 Essential (primary) hypertension; E78.5 Hyperlipidemia, unspecified; E11.9 Type 2 diabetes mellitus without complications; F17.210 Nicotine dependence, cigarettes, uncomplicated; F32.9 Major depressive disorder, single episode, unspecified; E66.9 Obesity, unspecified; Z68.30 Body mass index [BMI] 30.0-30.9, adult; Z79.84 Long term (current) use of oral hypoglycemic drugs
CPT/HCPCS: 36415; 71046-TC-FY; 71250-TC; 80053; 81003; 81015; 82803; 83036; 83880; 84443; 84484; 85025; 87086; 87186; 93005; 94640; 99284-25; G0378; J7620

== ENCOUNTER 2019-01-02 08:55 | Emergency (ER) | payer BC ==
[2019-01-02 09:05] VITALS: BP 143/93; PULSE 84; TEMP 98.6; BMI 30.9
--- NOTE | 2019-01-02 09:43 | PDOC ---
History of Present Illness - General Chief Complaint: Allergic Reaction Stated Complaint: ALLERGIC REACTION Time Seen by Provider: 01/02/19 09:05 - History of Present Illness Initial Comments: 01/02/19 09:32 58F with pmh of HTN, HLD, DM and allergies presents to the ED with itchy, red and swollen eyelids since Wednesday. The conjunctiva is spared. She has seen a convenience store manager who prescribed her prednisone and Zyrtec which helped and a ZTacrolimus ointment which was too uncomfortable to keep using. She also saw an care provider at [facility] who gave her a l;ist of the compounds she was allergic to, including compounds found in Clorox wipes used frequently at work. 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 She denies fever, chills, drainage from tear ducts, rash or oany other sign of allergy not localized around her eyes. Past History - Past Medical History Allergies/Adverse Reactions: Allergies Allergy/AdvReac Type Severity Reaction Status Date / Time benzalkonium chloride Allergy Rash Verified 01/02/19 08:58 nickel Allergy Rash Verified 01/02/19 08:58 Sulfa (Sulfonamide Allergy Rash Verified 01/02/19 08:58 Antibiotics) Home Medications: Ambulatory Orders Levothyroxine [Synthroid -] 112 mcg PO DAILY 08/16/12 Sertraline HCl [Zoloft] 100 mg PO HS 08/16/12 metFORMIN HCL [Glucophage -] 1,000 mg PO HS 08/16/12 Atorvastatin Ca [Lipitor] 10 mg PO HS 09/08/16 Cholecalciferol (Vitamin D3) [Vitamin D3 -] 1,000 unit PO DAILY 09/08/16 Losartan Potassium 50 mg PO DAILY 11/29/17 Budesonide/Formeterol Fumarate [SYMBICORT 160/4.5mcg -] 2 puff IH BID #1 inhaler 12/03/17 Famotidine [Pepcid -] 20 mg PO BID #60 tablet 12/03/17 Tiotropium [place] [Spiriva Respimat] 2 puff IH DAILY #1 inhaler 12/03/17 Cetirizine HCl [Zyrtec -] 10 mg PO DAILY 01/02/19 Fexofenadine/Pseudoephedrine [Katia-D 24 Hour Tablet] 1 each PO DAILY #1 box 01/02/19 Ketotifen Fumarate [Zaditor] 5 ml OU BID #1 bottle 01/02/19 Methylprednisolone [Medrol Dose Cordell] 4 mg PO ASDIR #21 tablet 01/02/19 Anemia: No Asthma: No Cancer: No Cardiac Disorders: No CVA: No COPD: No CHF: No Dementia: No Diabetes: No (HYPERINSULINEMIA) GI Disorders: Yes (H/O REFLUX) Disorders: No HTN: No Hypercholesterolemia: Yes Liver Disease: No Psychiatric Problems: Yes (ANXIETY, DEPRESSION) Seizures: No Thyroid Disease: Yes (HYPOTHYROIDISM) - Surgical History Abdominal Surgery: No Appendectomy: No Cardiac Surgery: No Cholecystectomy: No Lung Surgery: No Neurologic Surgery: No Orthopedic Surgery: Yes (CARPAL TUNNEL RELEASE, RIGHT) - Psycho Social/Smoking Cessation Hx Smoking History: Current every day smoker Have you smoked in the past 12 months: Yes Number of Cigarettes Smoked Daily: 20 Cigars Per Day: 0 Information on smoking cessation initiated: Yes 'Breaking Loose' booklet given: 11/29/17 Hx Alcohol Use: No Drug/Substance Use Hx: No Substance Use Type: Alcohol Hx Substance Use Treatment: No Review of Systems - Review of Systems Able to Perform ROS?: Yes Is the patient limited [place] proficient: No Constitutional: No: Symptoms Reported HEENTM: Yes: See HPI Respiratory: No: Symptoms reported Cardiac (ROS): No: Symptoms Reported ABD/GI: No: Symptoms Reported : No: Symptoms Reported Musculoskeletal: No: Symptoms Reported Integumentary: Yes: See HPI Neurological: No: Symptoms reported All Other Systems: Reviewed and Negative *Physical Exam - Vital Signs Last Vital Signs Temp Pulse Resp BP Pulse Ox 98.6 F 84 20 143/93 97 01/02/19 08:55 01/02/19 08:55 01/02/19 08:55 01/02/19 08:55 01/02/19 08:55 - Physical Exam General Appearance: Yes: Nourished, Appropriately Dressed. No: Apparent Distress HEENT: positive: EOMI, SAYRA, Normal ENT Inspection, Normal Voice, Other ( erythematous, swollen upper and lower eyelid sparring the conjunctiva itself. No drainage, tearing or purulence noted. ) Respiratory/Chest: positive: Lungs Clear, Normal Breath Sounds. negative: Chest Tender, Respiratory Distress Cardiovascular: positive: Regular Rhythm, Regular Rate, S1, S2 Extremity: positive: Normal Capillary Refill, Normal Inspection, Normal Range of Motion Integumentary: positive: Dry, Warm, Erythema (eyelids) Neurologic: positive: Fully Oriented, Alert, Normal Mood/Affect, Normal Response , Motor Strength 5/5 Medical Decision Making - Medical Decision Making 01/02/19 09:52 58f with eyelid allergic reaction, previously diagnosed in the past. ZFound relief in the past with antihistamines and steroids, haven't used them since these symptoms started on Wednesday. No sign that these symptoms are of infectious nature. No pain umpon rom fo the eyes, no change in vision. No otehr systemic signs of allergy or anaphylaxis. Will prescribe medrol dose pack, antihistamine eye drops and katia and discharge with follow up with her convenience store manager. Discharge - Discharge Information Problems reviewed: Yes Clinical Impression/Diagnosis: Allergic reaction Condition: Guarded Disposition: HOME - Admission No - Additional Discharge Information Prescriptions: Fexofenadine/Pseudoephedrine [Katia-D 24 Hour Tablet] 1 each PO DAILY #1 box Ketotifen Fumarate [Zaditor] 5 ml OU BID #1 bottle Methylprednisolone [Medrol Dose Cordell] 4 mg PO ASDIR #21 tablet Prescription Drug Monitoring Program (I-STOP) results: I-STOP reviewed and no issues identified - Follow up/Referral - Patient Discharge Instructions Patient Printed Discharge Instructions: DI for Eye Allergic Reaction Additional Instructions: Come back to the emergency department for any new, worsening or concerning symptoms. Follow up with your convenience store manager within the next 2 weeks. - Post Discharge Activity Work/Back to School Note: Back to Work
--- NOTE | 2019-01-02 09:47 | PDOC ---
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 has been prescribed a variety of medications has been tested for multiple allergies she occasionally gets flares requiring steroids approximately twice a year developed a similar flare on Wednesday bilaterally consistent with previous episodes no discharge no fever no swelling - Physicial Exam PE: 01/02/19 13:35 Vitals: Triage Vital signs reviewed General Appearance: No acute distress, well nourished well developed, Head: Atraumatic, Eyes: Bilateral slight swelling around both eyelids upper and lower symmetric no discharge appears allergic Neck: Supple; no Nucal rigidity Chest Wall: Nontender Cardiac: Regular rate and rhythym, no murmurs, no rubs, no gallops, Lungs: Clear to auscultation bilateral, good air movement bilaterally, Abdomen: Soft, non distended, normal bowel sounds, non tender to palpation Extremities: Full range of motion to all extremities, no cyanosis, clubbing, or edema atraumatic right is posterior and Psych: Normal mood, normal affect - Medical Decision Making 01/02/19 14:01 Patient presents with bilateral allergic eyelid swelling acute on chronic We will recommend Katia Medrol Dosepak as patient states this is severe enough to her for her to require steroids and allergy follow-up Findings, need for follow-up and strict return instructions discussed with patient.
== END 2019-01-02 09:53 | disposition home or self-care (01) ==
LOC: FER 08:55
DX: T78.40XA Allergy, unspecified, initial encounter (principal); Z88.2 Allergy status to sulfonamides; Z88.8 Allergy status to other drugs, medicaments and biological substances; Z91.09 Other allergy status, other than to drugs and biological substances; F17.210 Nicotine dependence, cigarettes, uncomplicated; E03.9 Hypothyroidism, unspecified; K21.9 Gastro-esophageal reflux disease without esophagitis; E16.1 Other hypoglycemia; G56.00 Carpal tunnel syndrome, unspecified upper limb
CPT/HCPCS: 99281-25

== ENCOUNTER 2019-04-07 05:49 | Day surgery (SDC) | payer BC ==
[2019-04-04 13:27] VITALS: BMI 31.0
[2019-04-07] MEDS ORDERED: LIDOCAINE HCL 2% (20ML MULTI-DOSE VIAL) ONE (07:11)
[2019-04-07] MEDS ORDERED: MIDAZOLAM HCL 2 MG/2 ML SINGLE DOSE VIAL ONE (07:15)
[2019-04-07] MEDS ORDERED: PROPOFOL 20 ML ONE ×3 (07:15)
[2019-04-07] MEDS ORDERED: SUCCINYLCHOLINE CHLORIDE 200 MG/10 ML SYRINGE ONE (07:16)
[2019-04-07] MEDS ORDERED: LIDOCAINE HCL 2% (50ML VIAL) INF ONE (08:04)
[2019-04-07 08:38] VITALS: PULSE 72; TEMP 97.8
[2019-04-07 09:21] VITALS: BP 122/71
[2019-04-07] MEDS ORDERED: ACETAMINOPHEN 325 MG TABLET (FP) PO PRN (10:11)
[2019-04-07] MEDS ORDERED: ONDANSETRON 4 MG/2 ML VIAL IVPUSH PRN (10:11)
[2019-04-07] MEDS ORDERED: LACTATED RINGERS SOLUTION 1,000 ML IV SCH (10:15)
--- NOTE | 2019-04-07 12:37 | OP ---
DATE OF OPERATION: 04/07/2019 SURGEON: Germán Navarro MD MEDICAL LABORATORY SPECIALIST: LEODAN Griffin PREOPERATIVE DIAGNOSIS: Right ring finger trigger finger/tenosynovitis. POSTOPERATIVE DIAGNOSIS: Right ring finger trigger finger/tenosynovitis. PROCEDURE: Release of right ring finger/4th finger trigger finger/tenosynovitis. FINDINGS: Thickened A1 pilar with impingement upon flexor tendons and minor fraying. DESCRIPTION OF PROCEDURE: Informed consent was obtained. Patient taken to the operating room where the right upper extremity was prepped and draped in sterile fashion. Tourniquet was placed on the upper arm and inflated to 250 mmHg. Local anesthesia, 1% lidocaine was injected along the area of the distal palmar crease. Longitudinal incision was made on the area of the A1 pilar. This was taken down to the tendon sheath. It was incised. A1 pilar was identified and then released proximally and distally using blunt tenotomy scissors. Curved hemostat was placed around the tendon. These were evaluated, and minor fraying was debrided. The wound was irrigated with copious amounts of irrigation, closed with 4-0 nylon and simple interrupted sutures. The PA listed above was present and assisted at surgery. Their presence was absolutely medically necessary for the completion of the procedure. They helped hold the arthroscopy, pass instruments (and implants when indicated) and the procedure could not have been completed without their assistance. GERMÁN NAVARRO M.D. [id number]
== END 2019-04-07 09:05 | disposition home or self-care (01) ==
LOC: FASU 05:49
PROVIDERS: ATTEND Orthopaedic Surgery
PROC: 0LN70ZZ Release Right Hand Tendon, Open Approach (ICD-10-PCS; principal; 2019-04-07 07:30)
DX: M65.341 Trigger finger, right ring finger (principal); M65.9 Synovitis and tenosynovitis, unspecified

== ENCOUNTER 2019-04-24 10:30 | Emergency (ER) | payer BC ==
[2019-04-24 10:43] VITALS: BMI 32.5
--- NOTE | 2019-04-24 11:01 | PDOC ---
History of Present Illness - General Chief Complaint: Psychiatric Stated Complaint: COLD SYMPTOMS/DIARRHEA Time Seen by Provider: 04/24/19 10:58 History Source: Patient Exam Limitations: No Limitations - History of Present Illness Initial Comments: 04/24/19 11:00 58 YOF with h/o anxiety (recently got Rx of Xanax #10 pills, and used up her supply this weekend), hypothyroidism, obesity, HTN, HLD, DM, GERD, and allergies who p/w chills, subjective fever, appetite loss, and diarrhea for the past 3 days which she believes has now triggered an anxiety attack typical of her normal anxiety attacks. She describes left chest discomfort, mild SOB, and palpitations. Denies lightheadedness, heat/cold intolerance, or any other additional new symptoms. 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 Also states she was seen in the [place] ER in the past few weeks and was given a small Rx for anxiolytic. One of her main goals coming in is a longer term medication solution for her anxiety attacks. Past History - Past Medical History Allergies/Adverse Reactions: Allergies Allergy/AdvReac Type Severity Reaction Status Date / Time benzalkonium chloride Allergy Rash Verified 04/04/19 13:18 nickel Allergy Rash Verified 04/04/19 13:18 Sulfa (Sulfonamide Allergy Rash Verified 04/04/19 13:18 Antibiotics) Home Medications: Ambulatory Orders Levothyroxine [Synthroid -] 125 mcg PO DAILY 08/16/12 Sertraline HCl [Zoloft] 150 mg PO HS 08/16/12 metFORMIN HCL [Glucophage -] 500 mg PO HS 08/16/12 Losartan Potassium 50 mg PO HS 11/29/17 Tiotropium [place]ill [Spiriva Respimat] 2 puff IH DAILY #1 inhaler 12/03/17 Albuterol Sulfate Inhaler - [Ventolin HFA Inhaler -] 1 puff IH PRN PRN 04/04/19 Alprazolam [Xanax] 0.25 mg PO BID PRN #4 tablet MDD 2 04/24/19 Anemia: No Asthma: Yes Cancer: No Cardiac Disorders: No CVA: No COPD: No CHF: No Dementia: No Diabetes: No (HYPERINSULINEMIA) GI Disorders: Yes (H/O REFLUX) Disorders: No HTN: No Hypercholesterolemia: Yes Liver Disease: No Psychiatric Problems: Yes (ANXIETY, DEPRESSION) Seizures: No Thyroid Disease: Yes (HYPOTHYROIDISM) - Surgical History Abdominal Surgery: No Appendectomy: No Cardiac Surgery: No Cholecystectomy: No Lung Surgery: No Neurologic Surgery: No Orthopedic Surgery: Yes (CARPAL TUNNEL RELEASE, RIGHT) - Psycho Social/Smoking Cessation Hx Smoking History: Never smoked Have you smoked in the past 12 months: Yes Number of Cigarettes Smoked Daily: 20 Cigars Per Day: 0 Information on smoking cessation initiated: No 'Breaking Loose' booklet given: 11/29/17 Hx Alcohol Use: No Drug/Substance Use Hx: No Substance Use Type: None Hx Substance Use Treatment: No Review of Systems - Review of Systems Able to Perform ROS?: Yes Comments:: 04/24/19 11:37 GEN: subjective fever, chills, no malaise, or generalized weakness HEENT: no ear pain, congestion, sore throat, vision change, or eye pain CV: chest discomfort, palpitations, no lightheadedness, syncope, or edema RESP: mild SOB, no wheezing, or cough GI: no abdominal pain, nausea, vomiting, diarrhea, constipation, or rectal bleed : no dysuria, hematuria, or discharge MSK: no muscle weakness or pain, no joint swelling or pain NEURO: no headache, vertigo, numbness, tingling, or focal weakness PSYCH: anxiety, no SI, HI, or behavior change SKIN: no jaundice, rash, lesions, or unexplained bruises ROS otherwise negative except as noted in HPI *Physical Exam - Vital Signs Last Vital Signs Temp Pulse Resp BP Pulse Ox 97.9 F 105 H 16 144/73 100 04/24/19 10:39 04/24/19 10:39 04/24/19 10:39 04/24/19 10:39 04/24/19 10:39 - Physical Exam 04/24/19 11:56 GENERAL: anxious but nontoxic-appearing, A/Ox4, no distress, answers questions appropriately HEENT: mild bilateral scleral injection and tearful, PERRLA, EOMI, moist mucous membranes NECK/BACK: no palpable thyromegaly, no midline ttp, no spinal stepoff or deformity, no hematoma, full ROM, neck supple CARDIOVASCULAR: regular rate/rhythm, not tachycardic at the time of my exam, no MGR, strong peripheral pulses, capillary refill <2 seconds, extremities wwp, no edema LUNGS/RESPIRATORY: no respiratory distress, CTAB GI/ABDOMEN: symmetric [id number], normoactive BS, soft, no ttp, no midline pulsatile masses : no CVA tenderness EXTREMITIES: no muscle atrophy, no acute deformity SKIN: warm and dry, no pallor, no jaundice, no rash, no bruising, no skin breakdown, no cuts, no lesions NEUROLOGICAL: GCS 15, CN II-XII grossly intact, 5/5 strength proximally and distally, no facial droop, no tremors Heart Score/ECG Review #1 Sinus tachycardia, rate 104, normal axis, borderline QTc, no ischemic ST-T changes ED Treatment Course - LABORATORY CBC & Chemistry Diagram: 04/24/19 12:15 04/24/19 12:15 Medical Decision Making - Medical Decision Making 04/24/19 11:58 Adult female Pt p/w rapid palpitations. Initial Vital Signs Temp Pulse Resp BP Pulse Ox 97.9 F 105 H 16 144/73 100 04/24/19 10:39 04/24/19 10:39 04/24/19 10:39 04/24/19 10:39 04/24/19 10:39 Exam: As noted in Physical Exam section. DDX IBNLT: most likely anxiety or thyroid disorder. Less likely any other more serious cause of palpitations/SOB but still considered are tachyarrhythmia, ischemia (ACS), structural heart condition, anemia, PE, PTX, bronchitis/PNA, sepsis/shock, tamponade, metabolic (e.g. DKA, hypoglycemia), thyroid condition, catecholamine surge (e.g. pheochromocytoma), anxiety/panic disorder, medication effect, substance use, etc. W/U ordered: Monitor EKG CXR CBCD CMP Mg Phos TSH Cardiac Panel UA UCx hCG TX ordered: IV DuoNeb IVF EKG: Reviewed; results as noted in ECG Review section. Laboratory Tests 04/24/19 04/24/19 04/24/19 12:15 12:15 12:15 WBC 11.1 H RBC 4.84 Hgb 14.7 Hct 42.5 MCV 87.8 MCH 30.4 MCHC 34.7 RDW 13.5 Plt Count 211 D MPV 9.1 Absolute Neuts (auto) 7.8 Neutrophils % 70.3 Lymphocytes % 22.8 Monocytes % 6.7 Eosinophils % 0.0 Basophils % 0.2 Nucleated RBC % 0 Sodium 139 Potassium 3.9 Chloride 109 H Carbon Dioxide 22 Anion Gap 9 BUN 12.7 Creatinine 0.7 Est GFR (CKD-EPI)AfAm 111.47 Est GFR (CKD-EPI)NonAf 96.18 Random Glucose 91 Calcium 9.8 Phosphorus 3.4 Magnesium 1.9 Total Bilirubin 0.4 AST 15 ALT 30 Alkaline Phosphatase 85 Troponin I < 0.02 Total Protein 7.3 Albumin 4.2 TSH 0.93 Free T4 1.22 Free T3 2.9 Urine Color Urine Appearance Urine pH Ur Specific [place] Urine Protein Urine Glucose (UA) Urine Ketones Urine Blood Urine Nitrite Urine Bilirubin Urine Urobilinogen Ur Leukocyte Esterase Urine WBC (Auto) Urine RBC (Auto) Urine Casts (Auto) U Epithel Cells (Auto) Urine Bacteria (Auto) 04/24/19 12:15 WBC RBC Hgb Hct MCV MCH MCHC RDW Plt Count MPV Absolute Neuts (auto) Neutrophils % Lymphocytes % Monocytes % Eosinophils % Basophils % Nucleated RBC % Sodium Potassium Chloride Carbon Dioxide Anion Gap BUN Creatinine Est GFR (CKD-EPI)AfAm Est GFR (CKD-EPI)NonAf Random Glucose Calcium Phosphorus Magnesium Total Bilirubin AST ALT Alkaline Phosphatase Troponin I Total Protein Albumin TSH Free T4 Free T3 Urine Color Yellow Urine Appearance Clear Urine pH 7.5 D Ur Specific [place] 1.010 Urine Protein Negative Urine Glucose (UA) Negative Urine Ketones Negative Urine Blood 2+ H Urine Nitrite Negative Urine Bilirubin Negative Urine Urobilinogen 0.2 Ur Leukocyte Esterase Negative Urine WBC (Auto) 0 Urine RBC (Auto) 14 Urine Casts (Auto) 0 U Epithel Cells (Auto) 0.6 Urine Bacteria (Auto) 6.0 TX ordered: Tylenol (patient states now mild PASTOR) 04/24/19 13:20 I spoke with patient's PCP Dr. Walker, states she had Xanax prescribed before the weekend. States he can see her in the office tomorrow, requests psych referral to our on- call psychiatrist. Confirms the patient does see a psychologist regularly but needs a psychiatrist. I let him know we can Rx a few pills of Xanax in case of anxiety attack overnight. The Pt has gotten significant relief of symptoms while in the ED. She does not have EKG or other workup findings concerning for life-threatening arrhythmia. She is appropriate for discharge with close outpatient follow up. She is comfortable with this plan and will follow up with her primary care provider in 1-3 days. Specific return precautions are discussed and she will come back to the ER if necessary. Discharge - Discharge Information Problems reviewed: Yes Clinical Impression/Diagnosis: Anxiety, Shortness of breath, Palpitations Condition: Stable Disposition: HOME - Admission No - Additional Discharge Information Prescriptions: Alprazolam [Xanax] 0.25 mg PO BID PRN #4 tablet MDD 2 PRN Reason: Anxiety Prescription Drug Monitoring Program (I-STOP) results: I-STOP reviewed and no issues identified - Follow up/Referral Referrals: Dexter Daniels MD [Primary Care Provider] - Lisa Rod MD [Staff Physician] - Jadon Reyes NP [Nurse Practitioner] - Rashi Melendez NP [Nurse Practitioner] - Bisi Sultana [Non Staff, Medical] - Boone Mcmanus MD [Non Staff, Medical] - Umair Boykin MD [Nurse Practitioner] - - Patient Discharge Instructions Additional Instructions: You were seen in the ER for anxious feeling, palpitations, and shortness of breath. We did lab work on your blood and urine, an electrocardiogram, and we did not find any concerning abnormalities. Your symptoms improved with the medications we gave you in the ER. After our assessment, we do not believe you are having a medical emergency at this time, and we believe you are safe to go home. Please follow up with your primary care provider in 1-3 days. Call their clinic as soon as possible, tell them you were seen in the ER, and tell them you need an appointment. If you have any new or worsening symptoms, especially worsening slow or fast palpitations, chest discomfort, shortness of breath, sweats, nausea, loss of consciousness, dizziness, or other symptoms, please come back to the ER at any time (24 hours a day). If you are having severe or life threatening symptoms, or symptoms that make it unsafe to drive or have someone drive you, please call 911. Follow up with Dr. Walker tomorrow (call his office this afternoon when you get home). 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 Use your albuterol inhaler or nebulizer if you need it for shortness of breath. Follow up with a psychiatrist (referral info in this packet). Also follow up with Dr. Rodney. - Post Discharge Activity Work/Back to School Note: Back to Work
--- NOTE | 2019-04-24 11:15 | PDOC ---
Attending Attestation - Resident Resident Name: Crys Salvador - ED Attending Attestation I have performed the following: I have examined & evaluated the patient, The case was reviewed & discussed with the resident, I agree w/resident's findings & plan, Exceptions are as noted - HPI HPI: 04/24/19 11:14 58y F hx of htn, anxiety, gerd, hypothyroidism, presents with 'anxiety'. Pt states that she has been having many personal issues (family, financial) recently making her anxious - she had seen Dr. Go but not approve gotten prescription for anxiolytics. States that she started having several episodes of loose stool, mild shortness of breath, palpitations, loss of appetite, chills on wednesday without any cough, abdominal pain, nausea, vomiting chest pain. Patient started taking her Zantac twice a day as prescribed. Presents today as she had run out of her medications. Patient denies any eliu chest pain but does note a sensation in her left arm which she has had before for several months is intermittent, nonexertional, without associated shortness of breath, diaphoresis, nausea, vomiting. - Physicial Exam PE: 04/24/19 11:58 GENERAL: The patient is awake, alert, and fully oriented, Nontoxic - in no acute distress. HEAD: Normocephalic, atraumatic. EYES: extraocular movements intact, sclera anicteric, conjunctiva clear. ENT: Normal voice, Moist mucous membranes. NECK: Normal range of motion, supple LUNGS: Breath sounds equal, clear to auscultation bilaterally. No wheezes, no rhonchi, no rales. HEART: Regular rate and rhythm, normal S1 and S2 without murmur, rub or gallop. ABDOMEN: Soft, nontender, No guarding, no rebound. No CVA tenderness EXTREMITIES: Normal range of motion, no edema. NEUROLOGICAL: No facial assymetry, Normal speech, PSYCH: Normal mood, normal affect. SKIN: Warm, Dry, normal turgor, - Medical Decision Making 04/24/19 11:59 Differential for the patient's symptoms includes possible anxiety, hyperthyroidism, metabolic derangements We will check basic labs We will give the patient a nebulizer for her shortness of breath Will reassess, will discuss with Dr. Aragon Patient is also asking for a more longer term solution to her anxiolytic. Patient slightly tachycardic suspect may be second dehydration patient states that she has not eaten yesterday morning. 04/24/19 12:58 [employer]ED BOSS REcord: Patient Name: Mariam Dillon Date: 1960 Address: [address] [place] [address] Sex: Female Rx Written Rx Dispensed Drug Quantity Days Supply Prescriber Name 04/07/2019 04/10/2019 hydrocodone-acetaminophen 5-325 mg tablet 28 7 Germán Price MD 03/13/2019 03/14/2019 alprazolam 0.25 mg tablet 10 10 Dexter Daniels 03/07/2019 03/09/2019 alprazolam 0.25 mg tablet 6 2 Rommel Samayoa DO 04/24/19 15:58 pts labs rviewed hematuria noted - will have pt fu with pmd for this pts vitals noramlized will dc with outpatient fu Heart Score/ECG Review - ECG Impressions Comment:: 04/24/19 12:01 Twelve-lead EKG was performed and reviewed by me. There is normal sinus rhythm with a rate of 104 The axis is normal. The intervals are normal. There is normal R wave progression There are no ST or T wave abnormalities. Impression: sinus tachycardia
[2019-04-24] MEDS ORDERED: ALBUTEROL SO4 2.5/IPRATROPIUM 0.5 INH SOL 3 ML VIAL.NEB. NEB ONE ×2 (11:55→12:14)
[2019-04-24] MEDS ORDERED: SODIUM CHLORIDE 0.9% 500 ML INFUS.BAG IV ONE (12:12)
--- NOTE | 2019-04-24 12:46 | EKG ---
Test Reason : Blood Pressure : / mmHG Vent. Rate : 104 BPM Atrial Rate : 104 BPM P-R Int : 144 ms QRS Dur : 072 ms QT Int : 366 ms P-R-T Axes : 013 071 053 degrees QTc Int : 481 ms SINUS TACHYCARDIA OTHERWISE NORMAL ECG WHEN COMPARED WITH ECG OF 29-NOV-2017 10:00, NO SIGNIFICANT CHANGE WAS FOUND Confirmed by Jaquelin Lilly ([id number]) on 04/24/2019 12:46:05 PM Referred By: Confirmed By:Jaquelin Lilly
[2019-04-24] MEDS ORDERED: ACETAMINOPHEN 500 MG TABLET (FP) PO ONE (13:02)
[2019-04-24 13:19] LABS: BASO % 0.2 % (0-2.0); HEMATOCRIT 42.5 % (32.4-45.2); HEMOGLOBIN 14.7 GM/dL (10.7-15.3); LYMPH % 22.8 % (8-40); MCH 30.4 pg (25.7-33.7); MCHC 34.7 g/dl (32.0-36.0); MEAN CELL VOLUME 87.8 fl (80-96); MEAN PLT VOLUME 9.1 fl (7.5-11.1); MONO % 6.7 % (3.8-10.2); NEUT % 70.3 % (42.8-82.8); PLATELET COUNT 211 K/MM3 (134-434); RBC 4.84 M/mm3 (3.60-5.2); RDW 13.5 % (11.6-15.6); WHITE BLOOD COUNT 11.1 K/mm3 (4.0-10.0)
[2019-04-24] MEDS ORDERED: ACETAMINOPHEN 325 MG TABLET (FP) ONE (13:27)
[2019-04-24 13:52] LABS: EPI CELLS 0.6 /HPF (0-5/HPF); HYALINE CASTS 0 /lpf (0-8); PH,URINE 7.5 (5.0-8.0); URINE APPEARANCE CLEAR; URINE BILIRUBIN NEGATIVE (NEGATIVE); URINE COLOR YELLOW; URINE GLUCOSE (UA) NEGATIVE (NEGATIVE); URINE KETONE NEGATIVE (NEGATIVE); URINE LEUK ESTERASE NEGATIVE (NEGATIVE); URINE NITRITE NEGATIVE (NEGATIVE); URINE PROTEIN NEGATIVE (NEGATIVE); URINE RBC 14 /hpf (0-4); URINE UROBILINOGEN 0.2 mg/dL (0.2-1.0); URINE WBC 0 /hpf (0-5)
[2019-04-24 13:59] LABS: ALBUMIN 4.2 g/dl (3.4-5.0); ALK PHOS 85 U/L (45-117); ANION GAP 9 MMOL/L (8-16); BILIRUBIN,TOTAL 0.4 mg/dL (0.2-1); BLOOD UREA NITROGEN 12.7 mg/dL (7-18); CALCIUM 9.8 mg/dL (8.5-10.1); CHLORIDE 109 mmol/L (98-107); CO2 22 mmol/L (21-32); CREATININE 0.7 mg/dL (0.55-1.3); GLUCOSE,RANDOM 91 mg/dL (74-106); MAGNESIUM 1.9 mg/dL (1.8-2.4); PHOSPHOROUS 3.4 mg/dL (2.5-4.9); POTASSIUM 3.9 mmol/L (3.5-5.1); SGOT/AST 15 U/L (15-37); SGPT/ALT 30 U/L (13-61); SODIUM 139 mmol/L (136-145); TOT PROT 7.3 g/dl (6.4-8.2)
[2019-04-24 14:19] VITALS: BP 130/78; PULSE 76; TEMP 98.1
== END 2019-04-24 14:21 | disposition home or self-care (01) ==
LOC: JER 10:30
PROC: 3E0F7GC Introduction of Other Therapeutic Substance into Respiratory Tract, Via Natural or Artificial Opening (ICD-10-PCS; principal; 2019-04-24)
DX: R00.0 Tachycardia, unspecified (principal); F41.9 Anxiety disorder, unspecified; I10 Essential (primary) hypertension; E78.5 Hyperlipidemia, unspecified; E03.9 Hypothyroidism, unspecified; E16.1 Other hypoglycemia; F32.9 Major depressive disorder, single episode, unspecified; J45.909 Unspecified asthma, uncomplicated; E66.9 Obesity, unspecified; Z68.32 Body mass index [BMI] 32.0-32.9, adult; Z91.018 Allergy to other foods; Z88.2 Allergy status to sulfonamides; Z88.8 Allergy status to other drugs, medicaments and biological substances
CPT/HCPCS: 36415; 80053; 81003; 83735; 84100; 84439; 84443; 84481; 84484; 85025; 93005; 93010; 99284-25

== ENCOUNTER 2020-03-29 06:29 | Day surgery (SDC) | payer BC ==
[2020-03-26 13:08] VITALS: BMI 33.3
[2020-03-29] MEDS ORDERED: ONDANSETRON 4 MG/2 ML VIAL ONE ×2 (07:14→08:15)
[2020-03-29] MEDS ORDERED: MIDAZOLAM HCL 2 MG/2 ML SINGLE DOSE VIAL ONE (07:14)
[2020-03-29] MEDS ORDERED: PROPOFOL 20 ML ONE (07:14)
[2020-03-29] MEDS ORDERED: SUCCINYLCHOLINE CHLORIDE 200 MG/10 ML SYRINGE ONE (07:14)
[2020-03-29] MEDS ORDERED: DEXAMETHASONE SOD PHOSPHATE 4 MG/1 ML VIAL ONE ×2 (07:14→08:15)
[2020-03-29] MEDS ORDERED: BUPIVACAINE HCL/PF 0.25% (2.5MG/ML) 10 ML VIAL ONE (07:20)
[2020-03-29] MEDS ORDERED: LIDOCAINE HCL 1%, 10 MG/ML (20ML VIAL) ONE (07:20)
[2020-03-29] MEDS ORDERED: KETOROLAC TROMETHAMINE 30 MG/1 ML VIAL ONE (08:16)
[2020-03-29 08:45] VITALS: TEMP 98
[2020-03-29] MEDS ORDERED: oxyCODONE HCL 5 MG TABLET PO PRN (08:54)
[2020-03-29] MEDS ORDERED: ACETAMINOPHEN 325 MG TABLET (FP) PO PRN (08:54)
[2020-03-29] MEDS ORDERED: ONDANSETRON 4 MG/2 ML VIAL IVPUSH PRN (08:54)
[2020-03-29] MEDS ORDERED: LACTATED RINGERS SOLUTION 1,000 ML IV SCH (09:00)
[2020-03-29 09:04] VITALS: BP 111/51; PULSE 78
== END 2020-03-29 09:13 | disposition home or self-care (01) ==
LOC: FASU 06:29
PROVIDERS: ATTEND Orthopaedic Surgery
PROC: 01N50ZZ Release Median Nerve, Open Approach (ICD-10-PCS; principal; 2020-03-29 08:11)
DX: G56.02 Carpal tunnel syndrome, left upper limb (principal)
CPT/HCPCS: 82962